=== PATIENT | female | born 1995 | race Caucasian/White ===

== ENCOUNTER 2017-04-21 22:57 | Outpatient (CLI) | payer MEDICAID, OTHER ==
[~2017-04-21] VITALS: Ht 170.2 cm; Wt 94.5 kg
[~2017-04-21 22:57] MED LIST: CEPH-443 PO; FERR240T9 PO; HYDR-762 PO; IBUP800T25 PO; ONDA4TAB35 PO; PREN1TAB62 PO; SENN1TAB PO
[2017-04-21 23:30] VITALS: Ht 170.2 cm; Wt 94.5 kg
[2017-04-21 23:31] VITALS: BP 115/56; PULSE 96; RESP 18
[2017-04-22 00:18] LABS: ADD UMIC YES; UR ASCORBIC ACID NEGATIVE (NEGATIVE); UR BILIRUBIN (Dip) NEGATIVE (NEGATIVE); UR BLOOD (Dip) NEGATIVE (NEGATIVE); UR CLARITY CLEAR (CLEAR); UR COLOR YELLOW (YELLOW); UR GLUCOSE (Dip) NEGATIVE (NEGATIVE); UR KETONES (Dip) NEGATIVE (NEGATIVE); UR LEUKOCYTE ESTERASE (Dip) TRACE Leu/ul (NEGATIVE); UR MUCUS FEW /HPF (NONE SEEN); UR NITRITE (Dip) NEGATIVE (NEGATIVE); UR RBC 1 /HPF (0-5); UR SQUAMOUS EPITHELIAL CELL FEW /HPF (FEW); UR TOTAL PROTEIN (Dip) NEGATIVE (NEGATIVE); UR UROBILINOGEN (Dip) NEGATIVE (NEGATIVE)
--- NOTE | 2017-04-22 01:13 | RADRPT ---
PROCEDURE: OB ultrasound for biophysical profile CLINICAL INDICATION: 21 years of age, female. labor TECHNIQUE: Multiple sonographic images of the pelvis were obtained. Transabdominal view of the gr avid uterus are available for review. The images were reviewed on a PACS workstation. COMPARISON: None available. FINDINGS: breathing movement = 2/2 tone = 2/2 motion = 2/2 Amniotic fluid = 2/2 DANIELLE = 10.8 cm Single live intrauterine in cephalic presentation. heart rate measures 143 bpm. Posterior placenta, grade 1. Cervix is closed and changes length during the exam and measures between 3.9 and 3 cm. This may ind icate 30% internal funneling. IMPRESSION: 1. Single living fetus in cephalic presentation. 2. Biophysical profile = 8/8. 3. DANIELLE = 10.8 cm. 4. Posterior grade 1 placenta. 5. Cervix is closed and measures between 3.9 and 3 cm in length during the exam. This may indicate 3 0% internal funneling. Findings were discussed with Emerald Bosch RN by Dr. Raya Bowers on April 22, 2017 at 1:10 AM. RPTAT: HCTS Physician Michael Date Time Electronically viewed and signed by Physician Michael on 04/22/2017 01:12 CS/
--- NOTE | 2017-04-22 02:54 | TRIAGE ---
OB Triage Datetime Report Generated by CPN: 04/22/2017 02:54 Datetime: 04/22/2017 01:25 Stage of : OB Triage Labor Evaluation Frequency: 0 Monitor Mode: External Pattern: Normal: <= 5 Contractions in 10 Minutes Resting Tone [place]: Relaxed Heart Rate FHR Baseline Rate: 135 Monitor Mode: External US Variability: Moderate 6-25 bpm Accelerations: 15X15 Decelerations: None Category: Category I Datetime: 04/22/2017 00:45 Stage of : OB Triage Labor Evaluation Frequency: OCCASS Monitor Mode: External Duration (sec)2399: 40-50 Quality: Mild Pattern: Normal: <= 5 Contractions in 10 Minutes Resting Tone [place]: Relaxed Heart Rate FHR Baseline Rate: 140 Monitor Mode: External US Variability: Moderate 6-25 bpm Accelerations: 15X15 Decelerations: None Category: Category I Datetime: 04/22/2017 00:13 Vaginal Exam Dilatation (cms): 0.0 Effacement (%): 0 Station: -2 Exam By: MEGA Vaginal Bleeding: None Cervix, Consistency: Moderate Cervix, Position: Posterior Datetime: 04/22/2017 00:00 Stage of : OB Triage Temperature Route: Oral Labor Evaluation Frequency: 0 Monitor Mode: External Pattern: Normal: <= 5 Contractions in 10 Minutes Resting Tone [place]: Relaxed Heart Rate FHR Baseline Rate: 135 Monitor Mode: External US Variability: Moderate 6-25 bpm Accelerations: 15X15 Decelerations: Variable Category: Category II Pain Assessment Pain Scale: 7 Pain Presence: Constant Pain Type: Dull; Ache Pain Location: Abdomen; Back Pain Goal: 3 Pain Relief Measures: Comfort Measures Datetime: 04/21/2017 23:26 Assessment Type: Triage Time of Arrival: 04/21/2017 22:44 EGA: 30.6 Arrived By: Wheelchair Arrived From: Home Chief Complaint: CXS AND VAG PRESSURE X3DAYS NOTED SPOTTING 2 DAYS AGO, NO MORE VOMITING SINCE YESTERDAY, X2 TODAY Movement: Present Contractions: Irregular Rupture of Membranes: Denies Vaginal Bleeding: None Vaginal Discharge: Denies Recent Sexual Intercouse: Denies Abdominal Trauma: Not Applicable Additional Patient Complaints: LAST MEAL AT [address], LAST VOMITNIG AT V1600 Time Provider Notified: 04/22/2017 23:55 Provider Notified: ARDALAN Initial Plan: EFM, ASSESSMENT, CALL MD FOR ORDERS, UA, FFN, CL, BPP Maternal Assessment Level of Consciousness: Fully Conscious DTR's/Clonus: DTRs 2+; No Clonus Headache: Denies Blurred Vision: No Respiratory Effort: Unlabored; Regular Rhythm; Equal Expansion Breath Sounds, Left: Clear and Equal Breath Sounds, Right: Clear and Equal Nausea/Vomiting: Denies RUQ Epigastric Pain: Denies Lower Extremities Edema: None Upper Extremities Edema: None Facial Edema: None Fall Risk Assessment History of Falling: (0) No Secondary Diagnosis: (0) No Ambulatory Aid: (0) Bedrest/Nurse Assist IV Therapy: (0) No Gait: (0) Normal/Bedrest/Immobile Mental Status: (0) Oriented to Own Ability Fall Score: 0 Fall Risk Score Definition: No Risk: No action required
--- NOTE | 2017-04-22 05:42 | PN ---
Triage Information Date/Time April 21, 2017 Reason for visit: Pelvic pressure and contractions 3 days ago currently resolved. Had some spotting and nausea Weeks of Gestation 30 weeks and 6 days /Para Diabetes: none Hypertention: none Additional information 21-year-old with IUP at 30 weeks and 6 days with complaint of contractions since 3 days ago. Reports has some vomiting x 2 days. She had some spotting 2 days ago. Patient had care with Dr. Martínez however due to change of insurance had not been seen for weeks. Objective Vital Signs Date Time Temp Pulse Resp B/P Pulse Ox O2 Delivery O2 Flow Rate FiO2 04/21/17 23:31 97.9 96 18 115/56 97 Heart Rate: 130's Contractions: >10 Minutes Apart Exam General appearance: Alert and oriented 4. Patient does not appear to be in any acute distress. Abdomen: Soft, gravid, fundal height consistent with gestational age. No abdominal tenderness, NST: Category 1 Occasional rare contractions. FFN: negative CL: 3 cm Results/Medications Results 24 hrs Laboratory Tests Test 04/21/17 23:00 04/22/17 00:10 Urine Color YELLOW Urine Clarity CLEAR Urine pH 6.0 Urine Specific [place] 1.030 Urine Ketones NEGATIVE Urine Nitrite NEGATIVE Urine Bilirubin NEGATIVE Urine Urobilinogen NEGATIVE Urine Leukocyte Esterase TRACE A Urine Microscopic RBC 1 Urine Microscopic WBC 3 Urine Squamous Epithelial Cells FEW Urine Mucus FEW A Urine Hemoglobin NEGATIVE Urine Glucose NEGATIVE Urine Total Protein NEGATIVE Fibronectin NEGATIVE Imaging Results PROCEDURE: OB ultrasound for biophysical profile CLINICAL INDICATION: 21 years of age, female. labor TECHNIQUE: Multiple sonographic images of the pelvis were obtained. Transabdominal view of the gravid uterus are available for review. The images were reviewed on a PACS workstation. COMPARISON: None available. FINDINGS: breathing movement = 2/2 tone = 2/2 motion = 2/2 Amniotic fluid = 2/2 DANIELLE = 10.8 cm Single live intrauterine in cephalic presentation. heart rate measures 143 bpm. Posterior placenta, grade 1. Cervix is closed and changes length during the exam and measures between 3.9 and 3 cm. This may indicate 30% internal funneling. IMPRESSION: 1. Single living fetus in cephalic presentation. 2. Biophysical profile = 8. 3. DANIELLE = 10.8 cm. 4. Posterior grade 1 placenta. 5. Cervix is closed and measures between 3.9 and 3 cm in length during the exam. This may indicate 30% internal funneling. Findings were discussed with Emerald Bosch RN by Dr. Raya Bowers on April 22, 2017 at 1:10 AM. RPTAT: HCTS Disposition: Discharge Assessment/Plan IUP at 30 weeks and 6 days Contractions for 4 days. No clear evidence of labor Rare contractions seen on the monitor FFN negative CL 3 cm at least Patient will be discharged home follow up again tomorrow in the triage for repeat CL since the patient dose not have any OB at this time Jennifer RN was advised to call the patient to come back after 24 hours again for follow up and repeat CL and exam Advised to RT triage sooner for any other concerns Patient was advised to find a new OB through her insurance ABHINAV ARELLANO MD Apr 22, 2017 05:42
== END 2017-04-22 00:40 | disposition home or self-care (01) ==
LOC: OBT 22:57 → L-D 22:59 → OBT 04-22 00:40
PROVIDERS: ATTEND Obstetrics & Gynecology Obstetrics
DX: O26.893 Other specified pregnancy related conditions, third trimester (principal); Z3A.30 30 weeks gestation of pregnancy; R10.2 Pelvic and perineal pain
CPT/HCPCS: 76817; 76818; 81001; 82731; Z7500; G0463

== ENCOUNTER 2017-05-09 20:10 | Outpatient (CLI) | payer OTHER ==
[~2017-05-09] VITALS: Ht 170.2 cm; Wt 94.8 kg
[~2017-05-09 20:10] MED LIST changes: -CEPH-443 PO; -HYDR-762 PO; -IBUP800T25 PO; -ONDA4TAB35 PO; -SENN1TAB PO
[2017-05-09 20:17] VITALS: Ht 170.2 cm; Wt 94.8 kg
[2017-05-09 20:40] VITALS: BP 113/69; PULSE 93; RESP 18
--- NOTE | 2017-05-09 21:18 | PN ---
Triage Information Date/Time Reason for visit: Abdominal and pelvic pressure Weeks of Gestation 33 weeks and 3 days of gestation Prior OB history significant for 2 at full-term /Para 3 para 2 Patient with minimal care Patient is complaining of abdominal and pelvic pressure She reports positive movement, no leaking fluid and no vaginal bleeding Diabetes: none Hypertention: none Objective Vital Signs Date Time Temp Pulse Resp B/P Pulse Ox O2 Delivery O2 Flow Rate FiO2 05/09/17 20:40 97.8 93 18 113/69 Room Air Heart Rate: 140's Heart Rate Comments NST is reactive Contractions: None Exam Cervix is closed thick and high per nurse Results/Medications Imaging Results PROCEDURE: US OB Limited for Estimated Weight. CLINICAL INDICATION: 21 years of age, female. Estimated weight. labor TECHNIQUE: Multiple sonographic images of the pelvis were obtained. Transabdominal imaging only was performed. The images were reviewed on a PACS workstation. Image quality: Satisfactory. COMPARISON: April 22, 2017 FINDINGS: Mcmahan : Number of fetuses: 1 GENERAL EVALUATION: Cardiac activity: Present. FHR 137 bpm Presentation: Breech Placenta: Placenta site: Posterior. No evidence of placental previa. Placental grade 1. Placenta is thick and homogeneously echogenic and measures 5.5 cm. DATING: Clinical RADHA: June 24, 2017 EGA based on RADHA: 33 weeks 3-day BIOMETRY: BPD = 8 cm , 32 weeks 1 day HC = 28.8 cm , 31 weeks 5 days AC = 30 cm , 33 weeks 4 days FL = 6.2 cm , 32 weeks 2 days Composite sonographic age: 32 weeks 3 days plus or minus 3 weeks Estimated due date by ultrasound measurements: July 01, 2017 EFW 2067 grams, 26 percentile. ANATOMY: Not evaluated. IMPRESSION: 1. Single living fetus in breech presentation. 2. Clinical gestation age of 33 weeks 3 days and clinical RADHA June 24, 2017 are concordant with the composite sonographic age within 1 week. 3. Estimated weight is 2067 grams that is at the 26 percentile for gestational age. 4. Posterior placenta grade 1. Placenta is thick measuring 5.6 cm that may be seen with ischemic placental disease, infection or anemias. RPTAT: HCTS Physician Michael Date Time Electronically viewed and signed by Physician Michael on 05/09/2017 22: 24 CS/ CC: ADAMARIS MCCORMACK MD PROCEDURE: OB ultrasound for biophysical profile CLINICAL INDICATION: 21 years of age, female. well being. labor TECHNIQUE: Multiple sonographic images of the pelvis were obtained. Transabdominal view of the gravid uterus are available for review. The images were reviewed on a PACS workstation. COMPARISON: None available. FINDINGS: RADHA June 24, 2017 EGA by RADHA 33 weeks 3-day breathing movement = 2/2 tone = 2/2 motion = 2/2 Amniotic fluid = 2/2 DANIELLE = 10.8 cm Single live intrauterine in breech presentation. heart rate measures 144 bpm. Posterior placenta grade 1 Cervix: Closed cervix measures 3.3 cm. Internal funneling measures 1.4 cm (30%) IMPRESSION: 1. Single living fetus in breech presentation. 2. Biophysical profile = 8/8. 3. Low normal. DANIELLE = 10.8 cm. 4. Posterior placenta grade 1. 5. Closed cervix measures 3.3 cm with 30% internal funneling. RPTAT: HCTS Physician Michael Date Time Electronically viewed and signed by Physician Michael on 05/09/2017 22: 28 CS/ CC: ADAMARIS MCCORMACK MD Disposition: Discharge Assessment/Plan kick counts were discussed with the patient Patient was given information about [facility] clinics that she can receive care She was instructed to follow-up with an LOSS PREVENTION OPERATIONS MANAGER in the clinic in 2-3 days ADAMARIS MCCORMACK MD May 09, 2017 21:18
[2017-05-09 21:26] LABS: BARBITURATES Negative (NEGATIVE); BENZODIAZEPINES Negative (NEGATIVE); CANNABINOIDS Negative (NEGATIVE); COCAINE Negative (NEGATIVE); OPIATES Negative (NEGATIVE)
--- NOTE | 2017-05-09 22:25 | RADRPT ---
PROCEDURE: US OB Limited for Estimated Weight. CLINICAL INDICATION: 21 years of age, female. Estimated weight. labor TECHNIQUE: Multiple sonographic images of the pelvis were obtained. Transabdominal imaging only w as performed. The images were reviewed on a PACS workstation. Image quality: Satisfactory. COMPARISON: April 22, 2017 FINDINGS: [place]ma[place] : Number of fetuses: 1 GENERAL EVALUATION: Cardiac activity: Present. FHR 137 bpm Presentation: Breech Placenta: Placenta site: Posterior. No evidence of placental previa. Placental grade 1. Placenta is thick and homogeneously echogenic and measures 5.5 cm. DATING: Clinical RADHA: June 24, 2017 EGA based on RADHA: 33 weeks 3-day BIOMETRY: BPD = 8 cm , 32 weeks 1 day HC = 28.8 cm , 31 weeks 5 days AC = 30 cm , 33 weeks 4 days FL = 6.2 cm , 32 weeks 2 days Composite sonographic age: 32 weeks 3 days plus or minus 3 weeks Estimated due date by ultrasound measurements: July 01, 2017 EFW 2067 grams, 26 percentile. ANATOMY: Not evaluated. IMPRESSION: 1. Single living fetus in breech presentation. 2. Clinical gestation age of 33 weeks 3 days and clinical RADHA June 24, 2017 are concordant with t he composite sonographic age within 1 week. 3. Estimated weight is 2067 grams that is at the 26 percentile for gestational age. 4. Posterior placenta grade 1. Placenta is thick measuring 5.6 cm that may be seen with ischemic grazyna cental disease, infection or anemias. RPTAT: HCTS Physician Michael Date Time Electronically viewed and signed by Physician Michael on 05/09/2017 22:24 CS/
--- NOTE | 2017-05-09 22:29 | RADRPT ---
PROCEDURE: OB ultrasound for biophysical profile CLINICAL INDICATION: 21 years of age, female. well being. labor TECHNIQUE: Multiple sonographic images of the pelvis were obtained. Transabdominal view of the gr avid uterus are available for review. The images were reviewed on a PACS workstation. COMPARISON: None available. FINDINGS: RADHA June 24, 2017 EGA by RADHA 33 weeks 3-day breathing movement = 2/2 tone = 2/2 motion = 2/2 Amniotic fluid = 2/2 DANIELLE = 10.8 cm Single live intrauterine in breech presentation. heart rate measures 144 bpm. Posterior placenta grade 1 Cervix: Closed cervix measures 3.3 cm. Internal funneling measures 1.4 cm (30%) IMPRESSION: 1. Single living fetus in breech presentation. 2. Biophysical profile = 8/8. 3. Low normal. DANIELLE = 10.8 cm. 4. Posterior placenta grade 1. 5. Closed cervix measures 3.3 cm with 30% internal funneling. RPTAT: HCTS Physician Michael Date Time Electronically viewed and signed by Physician Michael on 05/09/2017 22:28 CS/
[2017-05-09 22:46] LABS: ADD UMIC NO; UR ASCORBIC ACID NEGATIVE (NEGATIVE); UR BILIRUBIN (Dip) NEGATIVE (NEGATIVE); UR BLOOD (Dip) NEGATIVE (NEGATIVE); UR CLARITY CLEAR (CLEAR); UR COLOR YELLOW (YELLOW); UR GLUCOSE (Dip) NEGATIVE (NEGATIVE); UR KETONES (Dip) 1+ mg/dL (NEGATIVE); UR LEUKOCYTE ESTERASE (Dip) NEGATIVE Leu/ul (NEGATIVE); UR NITRITE (Dip) NEGATIVE (NEGATIVE); UR SPECIFIC GRAVITY (Dip) 1.025 (1.003-1.030); UR TOTAL PROTEIN (Dip) NEGATIVE (NEGATIVE); UR UROBILINOGEN (Dip) 2+ mg/dL (NEGATIVE)
== END 2017-05-09 23:33 | disposition home or self-care (01) ==
LOC: OBT 20:10 → L-D 20:11 → OBT 23:33
PROVIDERS: ATTEND Obstetrics & Gynecology Gynecology
DX: O26.893 Other specified pregnancy related conditions, third trimester (principal); Z3A.33 33 weeks gestation of pregnancy; R10.9 Unspecified abdominal pain
CPT/HCPCS: 76815; 76817; 76818; 80307; 81003; Z7500; G0463

== ENCOUNTER 2017-05-23 13:05 | Inpatient (IN) | payer OTHER ==
[~2017-05-23] VITALS: Ht 167.6 cm; Wt 95.0 kg
[~2017-05-23 13:05] MED LIST changes: -FERR240T9 PO
[2017-05-23 13:41] VITALS: Ht 167.6 cm; Wt 95.0 kg
[2017-05-23] MEDS ORDERED: LACTATED RINGER'S 1,000 ML IV SCH (14:30)
--- NOTE | 2017-05-23 14:56 | RADRPT ---
PROCEDURE: OB ultrasound for biophysical profile CLINICAL INDICATION: Vaginal bleeding TECHNIQUE: Multiple sonographic images of the pelvis were obtained. Transabdominal views of the g ravid uterus are available for review. The images were reviewed on a PACS workstation. COMPARISON: None FINDINGS: breathing movement = 2/2 tone = 2/2 motion = 2/2 DANIELLE = 2/2 DANIELLE = 9.4 cm Single live intrauterine with cardiac activity of 146 bpm. position is breech . The placenta is posterior. The cervix is closed with a length of 3.3 cm. IMPRESSION: 1. Single live intrauterine gestation. 2. Biophysical profile = 8/8. 3. DANIELLE = 9.4 cm. 4. Breech presentation. RPTAT: HH .Leslie Best MD, Date Time Electronically viewed and signed by .Leslie Best MD, on 05/23/2017 14:55 .G/
--- NOTE | 2017-05-23 14:58 | RADRPT ---
PROCEDURE: US OB. CLINICAL INDICATION: Size and dates TECHNIQUE: Multiple sonographic images of the pelvis were obtained. Transabdominal imaging only w as performed. The images were reviewed on a PACS workstation. COMPARISON: OB ultrasound dated 05/09/2017 FINDINGS: There is a single live intrauterine gestation. Cardiac activity is present with 153 beats per minut e. position is breech. Measurements were made in order to determine age. The results are as follows: BPD = 8.41 cm HC = 30.02 cm AC = 30.76 cm FL = 6.20 cm. Estimated gestational age of approximately 33 weeks 4 days. The estimated date of delivery is 07/07/2017. The EFW = 2272 g, 11 %ile. The placenta is posterior. There is no evidence for an abruption or placenta previa. There are no adnexal masses. IMPRESSION: 1. Single live intrauterine gestation of approximately 33 weeks 4 days, by ultrasound criteria. 2. The estimated date of delivery is 07/07/2017. 3. The estimated weight is 2272 g, 11 %ile. RPTAT: HH .Leslie Best MD, Date Time Electronically viewed and signed by .Leslie Best MD, on 05/23/2017 14:57 .G/
[2017-05-23 15:21] LABS: BASOPHILS % 0.2 % (0.0-2.0); EOSINOPHILS # 0.1 10^3/ul (0.0-0.5); EOSINOPHILS % 1.3 % (0.0-7.0); HEMATOCRIT 30.2 % (37.0-47.0); HEMOGLOBIN 9.8 g/dl (12.0-16.0); LYMPHOCYTES # 2.2 10^3/ul (0.8-2.9); LYMPHOCYTES % 23.1 % (18.0-55.0); MEAN CORPUSCULAR HEMOGLOBIN 27.5 pg (29.0-33.0); MEAN CORPUSCULAR HGB CONC 32.5 g/dl (32.0-37.0); MEAN CORPUSCULAR VOLUME 84.6 fl (72.0-104.0); MEAN PLATELET VOLUME 8.9 fl (7.4-10.4); MONOCYTE # 0.6 10^3/ul (0.3-0.9); MONOCYTES % 6.5 % (0.0-13.0); NEUTROPHIL # 6.6 10^3/ul (1.6-7.5); NEUTROPHILS % 68.6 % (30.0-74.0); PLATELET COUNT 243 10^3/UL (140-415); RED BLOOD COUNT 3.57 10^6/ul (4.20-5.40); RED CELL DISTRIBUTION WIDTH 13.9 % (11.5-14.5); WHITE BLOOD COUNT 9.6 10^3/ul (4.8-10.8)
--- NOTE | 2017-05-23 16:21 | HP ---
Date/Time of Note Date/Time of Note DATE: 05/23/17 TIME: 16:20 OB - History Hx of Present Free Text/Dictation 35+ wks with VB No care : 3 Para: 2 Care: Good Care Ultrasounds: Normal mid trimester US Obstetrical Complications: None Medical Complications: None Past Family/Social History * Past Medical, Surgical, Family and Obstetric Histories reviewed from chart. OB Admission Exam Vital Signs Vital Signs Vital Signs Date Time Temp Pulse Resp B/P Pulse Ox O2 Delivery O2 Flow Rate FiO2 05/23/17 13:41 98.0 Physical Exam Abdomen: WNL Extremities: Normal Cervical Dilatation: None Effacement: 0% Station: Ballotable Membranes: Intact Heart Rate: 140's Accelerations: Accelerations Present Decelerations: No Decelerations Varibility: Moderate Contractions on Admission: None Last 72 hours Lab Results CBC & BMP 05/23/17 15:10 OB Assessment/Plan Reason for admission: observation Plan: Expectant Management SHAWNA TRAMMELL M.D. May 23, 2017 16:21
[2017-05-23] MEDS: LACTATED RINGER'S 1,000 ML IV SCH (16:31)
[2017-05-23] MEDS ORDERED: MAGNESIUM SULFATE 4 GM/100 ML 100 ML ONE (16:36)
[2017-05-23] MEDS ORDERED: MAGNESIUM SULFATE 20 GM/500 ML 500 ML IV ONE (16:37)
[2017-05-23] MEDS ORDERED: BETAMET NA PHOS/AC(6 MG/ML) 5ML INJ ONE (16:38)
[2017-05-23] MEDS ORDERED: MAGNESIUM SULFATE 4 GM/100 ML 100 ML IV SCH (17:00)
[2017-05-23] MEDS: BETAMET NA PHOS/AC(6 MG/ML) 5ML INJ IM SCH (17:01)
[2017-05-23] MEDS: MAGNESIUM SULFATE 20 GM/500 ML 500 ML IV SCH (17:07)
[2017-05-23] MEDS ORDERED: ACETAMINOPHEN 325 MG TAB PO PRN (17:30)
[2017-05-23] MEDS: PRENATAL VITAMIN PO SCH (17:49)
[2017-05-23] MEDS: FERROUS SULFATE (EC) 325 MG TAB PO SCH (17:49)
[2017-05-24] MEDS: MAGNESIUM SULFATE 20 GM/500 ML 500 ML IV SCH ×3 (02:56→22:31)
[2017-05-24] MEDS: LACTATED RINGER'S 1,000 ML IV SCH ×2 (04:30→16:51)
[2017-05-24] MEDS ORDERED: ONDANSETRON 4 MG INJ IV PRN (05:30)
[2017-05-24] MEDS: PRENATAL VITAMIN PO SCH (09:16)
[2017-05-24] MEDS: FERROUS SULFATE (EC) 325 MG TAB PO SCH (09:16)
--- NOTE | 2017-05-24 14:33 | RADRPT ---
PROCEDURE: US OB. CLINICAL INDICATION: Low DANIELLE TECHNIQUE: Transabdominal views of the pelvis are available for review. COMPARISON: Obstetrical ultrasound from 05/23/2017 FINDINGS: There is a single intrauterine gestation in a breech position. The heart rate is present at 161 bpm. The placenta is posterior. There is no evidence of placenta previa or a placental abruption. The DANIELLE measures 9.2 cm. RPTAT: AA IMPRESSION: Normal DANIELLE. Physician Thang Date Time Electronically viewed and signed by Shaquille Lentz Physician on 05/24/2017 14:32 RA/
[2017-05-24] MEDS: BETAMET NA PHOS/AC(6 MG/ML) 5ML INJ IM SCH (16:47)
--- NOTE | 2017-05-24 18:13 | QN ---
Documentation Comment iup 34 + co spotting vss no spotting since yesterday exam wnl cl wnl a/p ucx. continue BMS dc mgsou4 tonight if stable possible dc im am CHRIS BINGHAM MD May 24, 2017 18:13
[2017-05-25] MEDS: LACTATED RINGER'S 1,000 ML IV SCH (06:04)
[2017-05-25] MEDS: FERROUS SULFATE (EC) 325 MG TAB PO SCH (08:40)
[2017-05-25] MEDS: PRENATAL VITAMIN PO SCH (08:40)
--- NOTE | 2017-05-25 11:00 | QN ---
Documentation Comment Antepartum Note: 34+wKs GA PTL NO cervical change received Steroids and Mg NST reassuring [place] No CTXs Pelvic closed cervix --->discharged with precaution .RT Hospital in 2 days for NST SHAWNA BRNAD M.D. May 25, 2017 11:00
--- NOTE | 2017-05-25 11:01 | DS ---
Date/Time of Note Date/Time of Note DATE: 05/25/17 TIME: 11:00 Discharge Summary Admission/Discharge Info Admit Date/Time May 23, 2017 at 16:16 Discharge Date/Time Discharge Diagnosis labor Patient Condition: Good Hospital Course uneventful Home Meds Reported Medications Vit-Iron Fumarate-FA ( Vitamin Tablet) 1 Each Tablet, 1 TAB PO DAILY, TAB 07/10/15 Primary Care Provider Not On Staff Doctor Pending Labs Laboratory Tests Test 05/24/17 12:27 05/24/17 14:00 05/24/17 18:05 Magnesium Level 4.5mg/dl (1.7-2.5) 4.6mg/dl (1.7-2.5) Membranes Rupture NEGATIVE (NEGATIVE) SHAWNA TRAMMELL M.D. May 25, 2017 11:01
--- NOTE | 2017-05-25 11:52 | RADRPT ---
PROCEDURE: US OB biophysical profile. CLINICAL INDICATION: decreased movements, labor TECHNIQUE: Multiple sonographic images of the pelvis were obtained. The images were reviewed on a PACS workstation. COMPARISON: Yesterday FINDINGS: There is a single viable intrauterine gestation. Cardiac activity is present with 161 beats per min picayune. There is a breech presentation. The placenta is posterior. There is no evidence of placental abruption. There is a normal amount of amniotic fluid with an DANIELLE = 9.1 cm. Biophysical profile: movement 2/2 tone 2/2. breathing 2/2 DANIELLE 2/2 Total 04/06 RPTAT: AA . IMPRESSION: Normal biophysical profile. . .Tyler Roach MD, MD Date Time Electronically viewed and signed by .Tyler Roach MD, on 05/25/2017 11:52 .S/
== END 2017-05-25 13:03 | disposition home or self-care (01) | DRG 778 ==
LOC: OBT 13:05 → L-D 13:06 → OBG 16:16 → OBT 16:16
PROVIDERS: ADMIT Obstetrics & Gynecology; ATTEND Obstetrics & Gynecology
DX: O60.03 Preterm labor without delivery, third trimester (principal); O09.33 Supervision of pregnancy with insufficient antenatal care, third trimester; Z3A.35 35 weeks gestation of pregnancy
CPT/HCPCS: 76815; 76817; 76818; 83735; 84112; 85025; 86850; 86900; 86901; 96360; G0463; J0702; J3475; J7120

== ENCOUNTER 2017-05-27 19:28 | Outpatient (CLI) | payer OTHER ==
[~2017-05-27] VITALS: Ht 170.2 cm; Wt 96.5 kg
[2017-05-27 20:33] VITALS: BP 115/61; PULSE 101; Ht 170.2 cm; Wt 96.5 kg
--- NOTE | 2017-05-27 21:28 | RADRPT ---
PROCEDURE: US biophysical profile. CLINICAL INDICATION: labor at 36 weeks gestational age. TECHNIQUE: Multiple sonographic images of the uterus were obtained. The images were revi ewed on a PACS workstation. COMPARISON: 05/25/2017. FINDINGS: There is a single live intrauterine gestation. heart rate is 146 beats per minute. The position is breech. The placenta is posterior grade 1 with no abruption or previa. The DANIELLE is 15.2 cm. (Normal = 5-20 cm.) Breathing Movement: 2 Gross Body Movement: 2 Tone: 2 Qualitative Amniotic Fluid Volume: 2 TOTAL: 8 IMPRESSION: 1. The biophysical score is 8/8. RPTAT: QQ .Juan Pop MD, MD Date Time Electronically viewed and signed by .Juan Pop MD, on 05/27/2017 21:28 .R/
--- NOTE | 2017-05-28 06:22 | TRIAGE ---
OB Triage Datetime Report Generated by CPN: 05/28/2017 06:21 Datetime: 05/27/2017 23:10 Stage of : OB Triage Labor Evaluation Frequency: OCCASS Monitor Mode: External Duration (sec)2399: 50 Quality: Mild Pattern: Normal: <= 5 Contractions in 10 Minutes Resting Tone Pella: Relaxed Heart Rate FHR Baseline Rate: 145 Monitor Mode: External US Variability: Moderate 6-25 bpm Accelerations: 15X15 Decelerations: None Category: Category I Pain Assessment Pain Scale: 0 Pain Presence: None/Denies Pain Type: N/A Pain Goal: 3 Datetime: 05/27/2017 22:45 Time of Arrival: 05/27/2017 19:21 EGA: 36.0 Arrived By: Wheelchair Arrived From: Home Chief Complaint: PT.STATED SHE WAS HERE ON 05/25/17 FOR LABOR, WAS TOLD TO COME FOR BPP Movement: Present Contractions: Denies/Absent Rupture of Membranes: Denies Vaginal Discharge: Denies Recent Sexual Intercouse: Denies Abdominal Trauma: Not Applicable Time Provider Notified: 05/27/2017 23:10 Provider Notified: BOOGIE Initial Plan: BPP Datetime: 05/27/2017 22:30 Stage of : OB Triage Labor Evaluation Frequency: OCCASS Monitor Mode: External Duration (sec)2399: 50 Quality: Mild Pattern: Normal: <= 5 Contractions in 10 Minutes Resting Tone Pella: Relaxed Heart Rate FHR Baseline Rate: 145 Monitor Mode: External US Variability: Moderate 6-25 bpm Accelerations: 15X15 Decelerations: None Category: Category I Pain Assessment Pain Scale: 0 Pain Presence: None/Denies Pain Type: N/A Pain Goal: 3 Datetime: 05/27/2017 21:30 Labor Evaluation Frequency: 0 Monitor Mode: External Resting Tone Pella: Relaxed Heart Rate FHR Baseline Rate: 145 Monitor Mode: External US Variability: Moderate 6-25 bpm Accelerations: 10X10 Decelerations: None Category: Category I Pain Assessment Pain Scale: 0 Pain Presence: None/Denies Pain Type: N/A Pain Goal: 3 Pain Relief Measures: Comfort Measures Datetime: 05/27/2017 20:30 Stage of : OB Triage Assessment Type: Triage Maternal Assessment Level of Consciousness: Fully Conscious DTR's/Clonus: DTRs 2+; No Clonus Headache: Denies Blurred Vision: No Respiratory Effort: Unlabored; Regular Rhythm; Equal Expansion Breath Sounds, Left: Clear and Equal Breath Sounds, Right: Clear and Equal Nausea/Vomiting: Denies RUQ Epigastric Pain: Denies Facial Edema: None Temperature Route: Axillary Fall Risk Assessment History of Falling: (0) No Secondary Diagnosis: (0) No Ambulatory Aid: (0) Bedrest/Nurse Assist IV Therapy: (0) No Gait: (0) Normal/Bedrest/Immobile Mental Status: (0) Oriented to Own Ability Fall Score: 0 Fall Risk Score Definition: No Risk: No action required Labor Evaluation Frequency: 0 Monitor Mode: External Pattern: Normal: <= 5 Contractions in 10 Minutes Resting Tone Pella: Relaxed Heart Rate FHR Baseline Rate: 145 Monitor Mode: External US Variability: Moderate 6-25 bpm Accelerations: 10X10 Decelerations: None Pain Assessment Pain Scale: 0 Pain Presence: None/Denies Pain Type: N/A Pain Goal: 3 Pain Relief Measures: Comfort Measures Datetime: 05/25/2017 12:47 Time of Arrival: 05/27/2017 19:21 EGA: 36.0 Arrived By: Ambulatory Arrived From: Home Chief Complaint: HOSPITALIZED THIS PAST WEEK, INSTRUCTED TO RETURN FOR NST/BPP TODAY. Movement: Present Contractions: Denies/Absent Rupture of Membranes: Denies Vaginal Bleeding: None Vaginal Discharge: Denies Recent Sexual Intercouse: Denies Abdominal Trauma: Not Applicable Initial Plan: MONITOR, BPP Datetime: 05/25/2017 12:00 Stage of : Antepartum Labor Evaluation Frequency: NONE Monitor Mode: External Resting Tone Pella: Relaxed Heart Rate FHR Baseline Rate: 150 Monitor Mode: External US FHR Baseline Changes: No Baseline Change Variability: Moderate 6-25 bpm Accelerations: 15X15 Decelerations: None Category: Category I Pain Assessment Pain Scale: 0 Pain Presence: None/Denies Pain Goal: 3 Datetime: 05/25/2017 11:00 Labor Evaluation Frequency: NONE Monitor Mode: External Resting Tone Pella: Relaxed Heart Rate FHR Baseline Rate: 150 Monitor Mode: External US FHR Baseline Changes: No Baseline Change Variability: Moderate 6-25 bpm Accelerations: 15X15 Decelerations: None Category: Category I Pain Assessment Pain Scale: 0 Pain Presence: None/Denies Pain Goal: 3 Datetime: 05/25/2017 10:00 Stage of : Antepartum Labor Evaluation Frequency: NONE Monitor Mode: External Resting Tone Pella: Relaxed Heart Rate FHR Baseline Rate: 140 Monitor Mode: External US FHR Baseline Changes: No Baseline Change Variability: Moderate 6-25 bpm Accelerations: 15X15 Decelerations: None Category: Category I Pain Assessment Pain Scale: 0 Pain Presence: None/Denies Pain Goal: 3 Datetime: 05/25/2017 09:00 Stage of : Antepartum Labor Evaluation Frequency: NONE Monitor Mode: External Resting Tone Pella: Relaxed Heart Rate FHR Baseline Rate: 140 Monitor Mode: External US FHR Baseline Changes: No Baseline Change Variability: Moderate 6-25 bpm Accelerations: 15X15 Decelerations: None Category: Category I Pain Assessment Pain Scale: 0 Pain Presence: None/Denies Pain Goal: 3 Datetime: 05/25/2017 08:00 Stage of : Antepartum Assessment Type: Ongoing Assessment Maternal Assessment Level of Consciousness: Fully Conscious DTR's/Clonus: DTRs 2+; No Clonus Headache: Denies Blurred Vision: No Respiratory Effort: Unlabored; Regular Rhythm; Equal Expansion Breath Sounds, Left: Clear and Equal Breath Sounds, Right: Clear and Equal Nausea/Vomiting: Denies RUQ Epigastric Pain: Denies Lower Extremities Edema: None Degree: None Upper Extremities Edema: None Degree: None Facial Edema: None Fall Risk Assessment History of Falling: (0) No Secondary Diagnosis: (0) No Ambulatory Aid: (0) Bedrest/Nurse Assist IV Therapy: (0) No Gait: (0) Normal/Bedrest/Immobile Mental Status: (0) Oriented to Own Ability Fall Score: 0 Fall Risk Score Definition: No Risk: No action required Labor Evaluation Frequency: NONE Monitor Mode: External Resting Tone Pella: Relaxed Heart Rate FHR Baseline Rate: 140 Monitor Mode: External US FHR Baseline Changes: No Baseline Change Variability: Moderate 6-25 bpm Accelerations: 15X15 Decelerations: None Category: Category I Pain Assessment Pain Scale: 0 Pain Presence: None/Denies Pain Goal: 3 Datetime: 05/25/2017 07:15 Stage of : Antepartum Stage of : Antepartum Datetime: 05/25/2017 06:56 Stage of : Antepartum Maternal Assessment Level of Consciousness: Fully Conscious Labor Evaluation Frequency: 0 Monitor Mode: External Resting Tone Pella: Relaxed Heart Rate FHR Baseline Rate: 130 Monitor Mode: External US FHR Baseline Changes: No Baseline Change Variability: Moderate 6-25 bpm Decelerations: None Pain Assessment Pain Scale: 0 Pain Presence: None/Denies Pain Type: N/A Pain Goal: 3 Pain Relief Measures: Comfort Measures Membrane Status: Intact Datetime: 05/25/2017 05:58 Stage of : Antepartum Maternal Assessment Level of Consciousness: Fully Conscious Labor Evaluation Frequency: 0 Monitor Mode: External Resting Tone Pella: Relaxed Heart Rate FHR Baseline Rate: 130 Monitor Mode: External US FHR Baseline Changes: No Baseline Change Variability: Moderate 6-25 bpm Decelerations: None Pain Assessment Pain Scale: 0 Pain Presence: None/Denies Pain Type: N/A Pain Goal: 3 Pain Relief Measures: Comfort Measures Membrane Status: Intact Datetime: 05/25/2017 04:58 Stage of : Antepartum Maternal Assessment Level of Consciousness: Fully Conscious Labor Evaluation Frequency: 0 Monitor Mode: External Resting Tone Pella: Relaxed Heart Rate FHR Baseline Rate: 130 Monitor Mode: External US FHR Baseline Changes: No Baseline Change Variability: Moderate 6-25 bpm Decelerations: None Pain Assessment Pain Scale: 0 Pain Presence: None/Denies Pain Type: N/A Pain Goal: 3 Pain Relief Measures: Comfort Measures Membrane Status: Intact Datetime: 05/25/2017 04:39 Stage of : Antepartum Temperature Route: Oral Datetime: 05/25/2017 03:58 Stage of : Antepartum Maternal Assessment Level of Consciousness: Fully Conscious Labor Evaluation Frequency: 0 Monitor Mode: External Resting Tone Pella: Relaxed Heart Rate FHR Baseline Rate: 130 Monitor Mode: External US FHR Baseline Changes: No Baseline Change Variability: Moderate 6-25 bpm Decelerations: None Pain Assessment Pain Scale: 0 Pain Presence: None/Denies Pain Type: N/A Pain Goal: 3 Pain Relief Measures: Comfort Measures Membrane Status: Intact Datetime: 05/25/2017 02:58 Stage of : Antepartum Maternal Assessment Level of Consciousness: Fully Conscious Labor Evaluation Frequency: 0 Monitor Mode: External Resting Tone Pella: Relaxed Heart Rate FHR Baseline Rate: 130 Monitor Mode: External US FHR Baseline Changes: No Baseline Change Variability: Moderate 6-25 bpm Decelerations: None Pain Assessment Pain Scale: 0 Pain Presence: None/Denies Pain Type: N/A Pain Goal: 3 Pain Relief Measures: Comfort Measures Membrane Status: Intact Datetime: 05/25/2017 01:58 Stage of : Antepartum Maternal Assessment Level of Consciousness: Fully Conscious Labor Evaluation Frequency: 0 Monitor Mode: External Resting Tone Pella: Relaxed Heart Rate FHR Baseline Rate: 130 Monitor Mode: External US FHR Baseline Changes: No Baseline Change Variability: Moderate 6-25 bpm Decelerations: None Pain Assessment Pain Scale: 0 Pain Presence: None/Denies Pain Type: N/A Pain Goal: 3 Pain Relief Measures: Comfort Measures Membrane Status: Intact Datetime: 05/25/2017 00:58 Stage of : Antepartum Maternal Assessment Level of Consciousness: Fully Conscious DTR's/Clonus: DTRs 2+ Headache: Denies Labor Evaluation Frequency: 0 Monitor Mode: External Resting Tone Pella: Relaxed Heart Rate FHR Baseline Rate: 130 Monitor Mode: External US FHR Baseline Changes: No Baseline Change Variability: Moderate 6-25 bpm Decelerations: None Pain Assessment Pain Scale: 0 Pain Presence: None/Denies Pain Type: N/A Pain Goal: 3 Pain Relief Measures: Comfort Measures Membrane Status: Intact Datetime: 05/24/2017 23:58 Stage of : Antepartum Maternal Assessment Level of Consciousness: Fully Conscious DTR's/Clonus: DTRs 2+ Headache: Denies Labor Evaluation Frequency: 0 Monitor Mode: External Resting Tone Pella: Relaxed Heart Rate FHR Baseline Rate: 135 Monitor Mode: External US FHR Baseline Changes: No Baseline Change Variability: Moderate 6-25 bpm Decelerations: None Pain Assessment Pain Scale: 0 Pain Presence: None/Denies Pain Type: N/A Pain Goal: 3 Pain Relief Measures: Comfort Measures Membrane Status: Intact Datetime: 05/24/2017 23:15 Stage of : Antepartum Datetime: 05/24/2017 22:58 Stage of : Antepartum Maternal Assessment Level of Consciousness: Fully Conscious DTR's/Clonus: DTRs 2+ Headache: Denies Labor Evaluation Frequency: 0 Monitor Mode: External Resting Tone Pella: Relaxed Heart Rate FHR Baseline Rate: 135 Monitor Mode: External US FHR Baseline Changes: No Baseline Change Variability: Moderate 6-25 bpm Decelerations: None Pain Assessment Pain Scale: 0 Pain Presence: None/Denies Pain Type: N/A Pain Goal: 3 Pain Relief Measures: Comfort Measures Membrane Status: Intact Datetime: 05/24/2017 21:58 Stage of : Antepartum Maternal Assessment Level of Consciousness: Fully Conscious DTR's/Clonus: DTRs 2+ Headache: Denies Labor Evaluation Frequency: 0 Monitor Mode: External Resting Tone Pella: Relaxed Heart Rate FHR Baseline Rate: 135 Monitor Mode: External US FHR Baseline Changes: No Baseline Change Variability: Moderate 6-25 bpm Decelerations: None Pain Assessment Pain Scale: 0 Pain Presence: None/Denies Pain Type: N/A Pain Goal: 3 Pain Relief Measures: Comfort Measures Membrane Status: Intact Datetime: 05/24/2017 20:58 Stage of : Antepartum Maternal Assessment Level of Consciousness: Fully Conscious DTR's/Clonus: DTRs 2+ Headache: Denies Labor Evaluation Frequency: 0 Monitor Mode: External Resting Tone Pella: Relaxed Heart Rate FHR Baseline Rate: 135 Monitor Mode: External US FHR Baseline Changes: No Baseline Change Variability: Moderate 6-25 bpm Decelerations: None Pain Assessment Pain Scale: 0 Pain Presence: None/Denies Pain Type: N/A Pain Goal: 3 Pain Relief Measures: Comfort Measures Membrane Status: Intact Datetime: 05/24/2017 19:58 Stage of : Antepartum Maternal Assessment Level of Consciousness: Fully Conscious DTR's/Clonus: DTRs 2+ Headache: Denies Breath Sounds, Left: Clear and Equal Breath Sounds, Right: Clear and Equal Temperature Route: Oral Labor Evaluation Frequency: 0 Monitor Mode: External Resting Tone Pella: Relaxed Heart Rate FHR Baseline Rate: 135 Monitor Mode: External US FHR Baseline Changes: No Baseline Change Variability: Moderate 6-25 bpm Decelerations: None Category: Category I Pain Assessment Pain Scale: 0 Pain Presence: None/Denies Pain Type: N/A Pain Goal: 3 Pain Relief Measures: Comfort Measures Membrane Status: Intact Datetime: 05/24/2017 19:40 Assessment Type: Ongoing Assessment Maternal Assessment Level of Consciousness: Fully Conscious DTR's/Clonus: DTRs 2+; No Clonus Headache: Denies Blurred Vision: No Respiratory Effort: Unlabored; Regular Rhythm; Equal Expansion Breath Sounds, Left: Clear and Equal Breath Sounds, Right: Clear and Equal Nausea/Vomiting: Denies RUQ Epigastric Pain: Denies Lower Extremities Edema: None Degree: None Upper Extremities Edema: None Degree: None Facial Edema: None Fall Risk Assessment History of Falling: (0) No Secondary Diagnosis: (0) No Ambulatory Aid: (0) Bedrest/Nurse Assist IV Therapy: (0) No Gait: (0) Normal/Bedrest/Immobile Mental Status: (0) Oriented to Own Ability Fall Score: 0 Fall Risk Score Definition: No Risk: No action required Datetime: 05/24/2017 18:15 DTR's/Clonus: DTRs 2+ Headache: Denies Breath Sounds, Left: Clear and Equal Breath Sounds, Right: Clear and Equal Labor Evaluation Frequency: 0 Monitor Mode: External Resting Tone Pella: Relaxed Heart Rate FHR Baseline Rate: 135 Monitor Mode: External US Variability: Moderate 6-25 bpm Decelerations: None Category: Category I Pain Assessment Pain Scale: 0 Pain Presence: None/Denies Pain Type: N/A Pain Goal: 3 Pain Relief Measures: Comfort Measures Datetime: 05/24/2017 16:52 Maternal Assessment Level of Consciousness: Fully Conscious DTR's/Clonus: DTRs 2+ Breath Sounds, Left: Clear and Equal Breath Sounds, Right: Clear and Equal Nausea/Vomiting: Denies Labor Evaluation Frequency: 0 Monitor Mode: External Resting Tone Pella: Relaxed Monitor Mode: External US Pain Assessment Pain Scale: 0 Pain Presence: None/Denies Pain Type: N/A Pain Goal: 3 Pain Relief Measures: Comfort Measures Datetime: 05/24/2017 16:02 Stage of : OB Triage Datetime: 05/24/2017 16:01 DTR's/Clonus: DTRs 2+ Headache: Denies Blurred Vision: No RUQ Epigastric Pain: Denies Facial Edema: None Labor Evaluation Frequency: 0 Monitor Mode: External Resting Tone Pella: Relaxed Heart Rate FHR Baseline Rate: 135 Monitor Mode: External US Variability: Moderate 6-25 bpm Accelerations: 10X10 Decelerations: None Category: Category I Pain Assessment Pain Scale: 0 Pain Presence: None/Denies Pain Type: N/A Pain Goal: 3 Pain Relief Measures: Comfort Measures Datetime: 05/24/2017 15:04 DTR's/Clonus: DTRs 2+ Breath Sounds, Left: Clear and Equal Breath Sounds, Right: Clear and Equal Labor Evaluation Frequency: 0 Monitor Mode: External Resting Tone Pella: Relaxed Heart Rate FHR Baseline Rate: 145 Monitor Mode: External US Variability: Moderate 6-25 bpm Accelerations: 10X10 Decelerations: None Category: Category I Pain Assessment Pain Scale: 0 Pain Presence: None/Denies Pain Type: N/A Pain Goal: 3 Pain Relief Measures: Comfort Measures Datetime: 05/24/2017 14:02 Maternal Assessment Level of Consciousness: Fully Conscious DTR's/Clonus: DTRs 2+ Blurred Vision: No Nausea/Vomiting: Denies Labor Evaluation Frequency: 0 Monitor Mode: External Pattern: Normal: <= 5 Contractions in 10 Minutes Resting Tone Pella: Relaxed Heart Rate FHR Baseline Rate: 135 Monitor Mode: External US Variability: Moderate 6-25 bpm Accelerations: 10X10 Decelerations: None Category: Category I Pain Assessment Pain Scale: 0 Pain Presence: None/Denies Pain Type: N/A Pain Goal: 3 Pain Relief Measures: Comfort Measures Datetime: 05/24/2017 13:53 Stage of : OB Triage Datetime: 05/24/2017 13:04 Maternal Assessment Level of Consciousness: Fully Conscious DTR's/Clonus: DTRs 2+ Headache: Denies Blurred Vision: No Respiratory Effort: Unlabored Breath Sounds, Left: Clear and Equal Breath Sounds, Right: Clear and Equal Nausea/Vomiting: Denies RUQ Epigastric Pain: Denies Facial Edema: None Labor Evaluation Frequency: 0 Monitor Mode: External Pattern: Normal: <= 5 Contractions in 10 Minutes Resting Tone Pella: Relaxed Heart Rate FHR Baseline Rate: 135 Monitor Mode: External US Variability: Moderate 6-25 bpm Accelerations: 10X10 Decelerations: None Category: Category I Pain Assessment Pain Scale: 0 Pain Presence: None/Denies Pain Type: N/A Pain Goal: 3 Pain Relief Measures: Comfort Measures Datetime: 05/24/2017 11:51 DTR's/Clonus: DTRs 2+ Respiratory Effort: Unlabored Breath Sounds, Left: Clear and Equal Breath Sounds, Right: Clear and Equal Nausea/Vomiting: Denies Labor Evaluation Frequency: 0 Monitor Mode: External Pattern: Normal: <= 5 Contractions in 10 Minutes Resting Tone Pella: Relaxed Heart Rate FHR Baseline Rate: 135 Monitor Mode: External US Variability: Moderate 6-25 bpm Decelerations: None Category: Category I Pain Assessment Pain Scale: 0 Pain Presence: None/Denies Pain Type: N/A Pain Goal: 3 Pain Relief Measures: Comfort Measures Datetime: 05/24/2017 10:53 Maternal Assessment Level of Consciousness: Fully Conscious DTR's/Clonus: DTRs 2+ Respiratory Effort: Unlabored Breath Sounds, Left: Clear and Equal Breath Sounds, Right: Clear and Equal Nausea/Vomiting: Denies Labor Evaluation Frequency: 0 Monitor Mode: External Pattern: Normal: <= 5 Contractions in 10 Minutes Resting Tone Pella: Relaxed Heart Rate FHR Baseline Rate: 135 Monitor Mode: External US Variability: Moderate 6-25 bpm Accelerations: 10X10 Decelerations: None Category: Category I Pain Assessment Pain Scale: 0 Pain Presence: None/Denies Pain Type: N/A Pain Goal: 3 Pain Relief Measures: Comfort Measures Datetime: 05/24/2017 09:57 Maternal Assessment Level of Consciousness: Fully Conscious DTR's/Clonus: DTRs 2+ Blurred Vision: No Respiratory Effort: Unlabored Breath Sounds, Left: Clear and Equal Breath Sounds, Right: Clear and Equal Nausea/Vomiting: Denies RUQ Epigastric Pain: Denies Facial Edema: None Labor Evaluation Frequency: 0 Monitor Mode: External Resting Tone Pella: Relaxed Heart Rate FHR Baseline Rate: 135 Monitor Mode: External US Variability: Moderate 6-25 bpm Accelerations: 10X10 Decelerations: None Category: Category I Pain Assessment Pain Scale: 0 Pain Presence: None/Denies Pain Type: N/A Pain Goal: 3 Datetime: 05/24/2017 09:19 Respiratory Effort: Unlabored Datetime: 05/24/2017 09:18 Maternal Assessment Level of Consciousness: Fully Conscious DTR's/Clonus: DTRs 2+ Headache: Denies Blurred Vision: No Breath Sounds, Left: Clear and Equal Breath Sounds, Right: Clear and Equal Nausea/Vomiting: Denies RUQ Epigastric Pain: Denies Labor Evaluation Frequency: 0 Monitor Mode: External Resting Tone Pella: Relaxed Pain Assessment Pain Scale: 0 Pain Presence: None/Denies Pain Type: N/A Pain Goal: 3 Datetime: 05/24/2017 08:05 Respiratory Effort: Unlabored Labor Evaluation Frequency: 0 Monitor Mode: External Resting Tone Pella: Relaxed Heart Rate FHR Baseline Rate: 135 Variability: Moderate 6-25 bpm Accelerations: None Decelerations: None Category: Category I Pain Assessment Pain Scale: 0 Pain Presence: None/Denies Pain Type: N/A Pain Goal: 3 Datetime: 05/24/2017 07:28 Maternal Assessment Level of Consciousness: Fully Conscious DTR's/Clonus: DTRs 2+ Headache: Denies Blurred Vision: No Respiratory Effort: Unlabored Breath Sounds, Right: Clear and Equal Nausea/Vomiting: Denies RUQ Epigastric Pain: Denies Facial Edema: None Labor Evaluation Frequency: 0 Monitor Mode: External Resting Tone Pella: Relaxed Contraction Comments: DENIES Heart Rate FHR Baseline Rate: 125 Monitor Mode: External US Variability: Moderate 6-25 bpm Accelerations: 10X10 Decelerations: None Category: Category I Pain Assessment Pain Scale: 0 Pain Presence: None/Denies Pain Type: N/A Pain Goal: 3 Pain Relief Measures: Comfort Measures Datetime: 05/24/2017 07:24 Assessment Type: Ongoing Assessment Maternal Assessment Level of Consciousness: Fully Conscious DTR's/Clonus: DTRs 2+; No Clonus Headache: Denies Blurred Vision: No Respiratory Effort: Unlabored; Regular Rhythm; Equal Expansion Breath Sounds, Left: Clear and Equal Breath Sounds, Right: Clear and Equal Nausea/Vomiting: Denies RUQ Epigastric Pain: Denies Lower Extremities Edema: None Degree: None Upper Extremities Edema: None Degree: None Facial Edema: None Fall Risk Assessment History of Falling: (0) No Secondary Diagnosis: (0) No Ambulatory Aid: (0) Bedrest/Nurse Assist IV Therapy: (0) No Gait: (0) Normal/Bedrest/Immobile Mental Status: (0) Oriented to Own Ability Fall Score: 0 Fall Risk Score Definition: No Risk: No action required Datetime: 05/24/2017 07:15 Stage of : Antepartum Datetime: 05/24/2017 06:59 Labor Evaluation Frequency: X1 Monitor Mode: External Duration (sec)2399: 60 Quality: Mild Resting Tone Pella: Relaxed Heart Rate FHR Baseline Rate: 125 Monitor Mode: External US Variability: Moderate 6-25 bpm Accelerations: 15X15 Decelerations: None Category: Category I Pain Presence: None/Denies Pain Type: N/A Amniotic Fluid Amount: None Vaginal Bleeding: None Datetime: 05/24/2017 06:00 DTR's/Clonus: DTRs 2+; No Clonus Labor Evaluation Frequency: NONE Monitor Mode: External Resting Tone Pella: Relaxed Heart Rate FHR Baseline Rate: 120 Monitor Mode: External US Variability: Moderate 6-25 bpm Accelerations: 15X15 Decelerations: None Category: Category I Pain Presence: None/Denies Pain Type: N/A Datetime: 05/24/2017 05:00 Stage of : Antepartum Labor Evaluation Frequency: NONE Monitor Mode: External Resting Tone Pella: Relaxed Heart Rate FHR Baseline Rate: 125 Monitor Mode: External US Variability: Moderate 6-25 bpm Accelerations: None Decelerations: None Category: Category I Pain Presence: None/Denies Pain Type: N/A Datetime: 05/24/2017 04:30 Stage of : Antepartum Datetime: 05/24/2017 04:00 Maternal Assessment Level of Consciousness: Fully Conscious DTR's/Clonus: DTRs 2+; No Clonus Breath Sounds, Left: Clear and Equal Breath Sounds, Right: Clear and Equal Labor Evaluation Frequency: NONE Monitor Mode: External Resting Tone Pella: Relaxed Heart Rate FHR Baseline Rate: 130 Monitor Mode: External US Variability: Moderate 6-25 bpm Accelerations: None Decelerations: None Category: Category I Pain Presence: None/Denies Pain Type: N/A Pain Assessment Comments: PT DENIES ANY NEEDS AT THIS TIME Datetime: 05/24/2017 03:00 Labor Evaluation Frequency: NONE Monitor Mode: External Resting Tone Pella: Relaxed Heart Rate FHR Baseline Rate: 135 Monitor Mode: External US Variability: Moderate 6-25 bpm Accelerations: 15X15 Decelerations: None Category: Category I Pain Presence: None/Denies Pain Type: N/A Pain Assessment Comments: PT SLEEPING BUT EASILY AROUSED Datetime: 05/24/2017 02:56 Stage of : Antepartum Datetime: 05/24/2017 02:00 Stage of : Antepartum DTR's/Clonus: DTRs 2+; No Clonus Labor Evaluation Frequency: NONE Monitor Mode: External Quality: Mild Resting Tone Pella: Relaxed Heart Rate FHR Baseline Rate: 135 Monitor Mode: External US Variability: Moderate 6-25 bpm Accelerations: 15X15 Decelerations: None Category: Category I Pain Presence: None/Denies Pain Type: N/A Pain Assessment Comments: PT SLEEPING BUT EASILY AROUSED Datetime: 05/24/2017 01:00 Labor Evaluation Frequency: NONE Monitor Mode: External Resting Tone Pella: Relaxed Heart Rate FHR Baseline Rate: 140 Monitor Mode: External US Variability: Moderate 6-25 bpm Accelerations: Prolonged Decelerations: None Category: Category I Pain Presence: None/Denies Pain Type: N/A Datetime: 05/24/2017 00:00 DTR's/Clonus: DTRs 2+; No Clonus Breath Sounds, Left: Clear and Equal Breath Sounds, Right: Clear and Equal Labor Evaluation Frequency: NONE Monitor Mode: External Resting Tone Pella: Relaxed Heart Rate FHR Baseline Rate: 140 Monitor Mode: External US Variability: Moderate 6-25 bpm Accelerations: 15X15 Decelerations: None Category: Category I Pain Presence: None/Denies Pain Type: N/A Datetime: 05/23/2017 23:35 Pain Presence: None/Denies Pain Type: N/A Datetime: 05/23/2017 23:00 Labor Evaluation Frequency: NONE Monitor Mode: External Resting Tone [place]: Relaxed Heart Rate FHR Baseline Rate: 140 Monitor Mode: External US Variability: Moderate 6-25 bpm Accelerations: 15X15 Decelerations: None Category: Category I Pain Assessment Pain Scale: 3 Pain Presence: Constant Pain Type: Burning Pain Location: Left Arm Pain Goal: 1 Pain Relief Measures: Comfort Measures Pain Assessment Comments: ICE PACK REMAINS ON PT'S ARM Datetime: 05/23/2017 22:00 Stage of : Antepartum DTR's/Clonus: DTRs 2+; No Clonus Labor Evaluation Frequency: NONE Monitor Mode: External Resting Tone [place]: Relaxed Heart Rate FHR Baseline Rate: 150 Monitor Mode: External US Variability: Moderate 6-25 bpm Accelerations: Prolonged Decelerations: None Category: Category I Pain Assessment Pain Scale: 3 Pain Presence: Constant Pain Type: Ache Pain Location: Left Arm Pain Goal: 5 Pain Assessment Comments: ICE PACK APPLIED TO IV SITE. MAGNESIUM SULFATE INFUSION MAKING PT'S ARM SORE Datetime: 05/23/2017 21:00 Heart Rate FHR Baseline Rate: 140 Monitor Mode: External US Variability: Moderate 6-25 bpm Accelerations: 15X15 Decelerations: None Category: Category I Pain Presence: None/Denies Pain Type: N/A Datetime: 05/23/2017 20:00 Stage of : Antepartum Labor Evaluation Frequency: NONE Monitor Mode: External Resting Tone [place]: Relaxed Heart Rate FHR Baseline Rate: 145 Monitor Mode: External US Variability: Moderate 6-25 bpm Accelerations: 15X15 Decelerations: None Category: Category I Pain Presence: None/Denies Pain Type: N/A Datetime: 05/23/2017 19:24 Stage of : Antepartum Assessment Type: Ongoing Assessment Maternal Assessment Level of Consciousness: Fully Conscious DTR's/Clonus: DTRs 2+; No Clonus Headache: Denies Blurred Vision: No Respiratory Effort: Unlabored; Regular Rhythm; Equal Expansion Breath Sounds, Left: Clear and Equal Breath Sounds, Right: Clear and Equal Nausea/Vomiting: Denies RUQ Epigastric Pain: Denies Lower Extremities Edema: None Degree: None Upper Extremities Edema: None Degree: None Facial Edema: None Temperature Route: Oral Fall Risk Assessment History of Falling: (0) No Secondary Diagnosis: (0) No Ambulatory Aid: (0) Bedrest/Nurse Assist IV Therapy: (0) No Gait: (0) Normal/Bedrest/Immobile Mental Status: (0) Oriented to Own Ability Fall Score: 0 Fall Risk Score Definition: No Risk: No action required Contraction Comments: PT DENIES UC'S Comments: PT STATES + FM Pain Presence: None/Denies Pain Type: N/A Amniotic Fluid Amount: None Vaginal Bleeding: None (Annotations: AT THIS TIME) Datetime: 05/23/2017 18:48 Maternal Assessment Level of Consciousness: Fully Conscious DTR's/Clonus: DTRs 2+ Headache: Denies Blurred Vision: No Respiratory Effort: Unlabored Breath Sounds, Left: Clear and Equal Breath Sounds, Right: Clear and Equal Nausea/Vomiting: Denies RUQ Epigastric Pain: Denies Facial Edema: None Labor Evaluation Frequency: IRREG Monitor Mode: External Quality: Mild Pattern: Normal: <= 5 Contractions in 10 Minutes Resting Tone [place]: Relaxed Heart Rate FHR Baseline Rate: 140 Monitor Mode: External US FHR Baseline Changes: No Baseline Change Variability: Moderate 6-25 bpm Accelerations: 15X15 Decelerations: None Category: Category I Pain Assessment Pain Scale: 0 Pain Presence: None/Denies Pain Type: N/A Pain Goal: 0 Membrane Status: Intact Datetime: 05/23/2017 17:24 Maternal Assessment Level of Consciousness: Fully Conscious DTR's/Clonus: DTRs 2+; No Clonus Blurred Vision: No Respiratory Effort: Unlabored; Regular Rhythm; Equal Expansion Breath Sounds, Left: Clear and Equal Breath Sounds, Right: Clear and Equal Nausea/Vomiting: Denies RUQ Epigastric Pain: Denies Facial Edema: None Fall Risk Assessment History of Falling: (0) No Secondary Diagnosis: (0) No Ambulatory Aid: (0) Bedrest/Nurse Assist Gait: (0) Normal/Bedrest/Immobile Mental Status: (0) Oriented to Own Ability Datetime: 05/23/2017 16:45 Maternal Assessment Level of Consciousness: Fully Conscious DTR's/Clonus: DTRs 2+ Headache: Occipital Blurred Vision: No Nausea/Vomiting: Denies RUQ Epigastric Pain: Denies Facial Edema: None Labor Evaluation Frequency: IRREG Monitor Mode: External Duration (sec)2399: 50-60 Quality: Mild Pattern: Normal: <= 5 Contractions in 10 Minutes Resting Tone [place]: Relaxed Pain Assessment Pain Scale: 10 Pain Presence: Intermittent Pain Type: Pressure Pain Location: Abdomen Membrane Status: Intact Datetime: 05/23/2017 16:30 Stage of : OB Triage Maternal Assessment Level of Consciousness: Fully Conscious DTR's/Clonus: DTRs 1+ Headache: Denies Breath Sounds, Left: Clear and Equal Breath Sounds, Right: Clear and Equal Nausea/Vomiting: Denies RUQ Epigastric Pain: Denies Labor Evaluation Frequency: NONE Monitor Mode: External Resting Tone [place]: Relaxed Heart Rate FHR Baseline Rate: 135 Monitor Mode: External US Variability: Moderate 6-25 bpm Accelerations: 15X15 Decelerations: None Category: Category I Pain Assessment Pain Scale: 0 Pain Presence: None/Denies Pain Type: N/A Pain Goal: 3 Membrane Status: Intact Datetime: 05/23/2017 16:18 Stage of : OB Triage Datetime: 05/23/2017 15:30 Stage of : OB Triage Maternal Assessment Level of Consciousness: Fully Conscious DTR's/Clonus: DTRs 1+ Headache: Denies Breath Sounds, Left: Clear and Equal Breath Sounds, Right: Clear and Equal Nausea/Vomiting: Denies RUQ Epigastric Pain: Denies Labor Evaluation Frequency: NONE Monitor Mode: External Resting Tone [place]: Relaxed Heart Rate FHR Baseline Rate: 140 Monitor Mode: External US Variability: Moderate 6-25 bpm Accelerations: 15X15 Decelerations: None Category: Category I Pain Assessment Pain Scale: 0 Pain Presence: None/Denies Pain Type: N/A Pain Goal: 3 Membrane Status: Intact Datetime: 05/23/2017 14:30 Maternal Assessment Level of Consciousness: Fully Conscious DTR's/Clonus: DTRs 1+ Headache: Denies Blurred Vision: No Respiratory Effort: Unlabored Breath Sounds, Left: Clear and Equal Breath Sounds, Right: Clear and Equal Nausea/Vomiting: Denies RUQ Epigastric Pain: Denies Facial Edema: None Labor Evaluation Frequency: NONE Monitor Mode: External Resting Tone [place]: Relaxed Heart Rate FHR Baseline Rate: 140 Monitor Mode: External US Variability: Moderate 6-25 bpm Accelerations: 15X15 Decelerations: None Category: Category I Pain Assessment Pain Scale: 0 Pain Presence: None/Denies Pain Type: N/A Pain Goal: 3 Membrane Status: Intact Datetime: 05/23/2017 13:30 Stage of : OB Triage Maternal Assessment Level of Consciousness: Fully Conscious DTR's/Clonus: DTRs 1+ Headache: Denies Breath Sounds, Left: Clear and Equal Breath Sounds, Right: Clear and Equal Nausea/Vomiting: Denies RUQ Epigastric Pain: Denies Labor Evaluation Frequency: NONE Monitor Mode: External Resting Tone [place]: Relaxed Heart Rate FHR Baseline Rate: 140 Monitor Mode: External US Variability: Moderate 6-25 bpm Accelerations: 15X15 Decelerations: None Category: Category I Pain Assessment Pain Scale: 0 Pain Presence: None/Denies Pain Type: N/A Pain Goal: 3 Membrane Status: Intact Datetime: 05/23/2017 13:00 Assessment Type: Triage Maternal Assessment Level of Consciousness: Fully Conscious DTR's/Clonus: DTRs 2+; No Clonus Headache: Denies Blurred Vision: No Respiratory Effort: Unlabored; Regular Rhythm; Equal Expansion Breath Sounds, Left: Clear and Equal Breath Sounds, Right: Clear and Equal Nausea/Vomiting: Denies RUQ Epigastric Pain: Denies Lower Extremities Edema: None Degree: None Upper Extremities Edema: None Degree: None Facial Edema: None Fall Risk Assessment History of Falling: (0) No Secondary Diagnosis: (0) No Ambulatory Aid: (0) Bedrest/Nurse Assist IV Therapy: (0) No Gait: (0) Normal/Bedrest/Immobile Mental Status: (0) Oriented to Own Ability Fall Score: 0 Fall Risk Score Definition: No Risk: No action required Datetime: 05/23/2017 12:56 Time of Arrival: 05/23/2017 12:56 EGA: 35.3 Arrived By: Ambulatory Arrived From: Home Chief Complaint: PT CAME IN C/O BLEEDING SINCE YESTERDAY AND SHE WASNT ABLE TO COME TO GET CHECK. PT STATES THAT SHE DOESNT HAVE AN OBGYN FOR THIS Movement: Present Contractions: Denies/Absent Rupture of Membranes: Denies Vaginal Discharge: Denies Recent Sexual Intercouse: Denies Abdominal Trauma: Not Applicable Additional Patient Complaints: NONE Time Provider Notified: 05/23/2017 13:40 Provider Notified: VALERI Initial Plan: MONITOR AND U/S, CBC, IV HYDRATION, TYPE AND CROSS Datetime: 05/09/2017 23:33 Stage of : OB Triage Datetime: 05/09/2017 23:00 Stage of : OB Triage Labor Evaluation Frequency: IRREGULAR Monitor Mode: External Duration (sec)2399: 40 Resting Tone [place]: Relaxed Heart Rate FHR Baseline Rate: 145 Monitor Mode: External US Variability: Moderate 6-25 bpm Accelerations: 15X15 Decelerations: None Category: Category I Datetime: 05/09/2017 22:57 Stage of : OB Triage Datetime: 05/09/2017 22:00 Stage of : OB Triage Labor Evaluation Frequency: IRREGULAR Monitor Mode: External Duration (sec)2399: 30-40 Resting Tone [place]: Relaxed Heart Rate FHR Baseline Rate: 135 Monitor Mode: External US FHR Baseline Changes: No Baseline Change Variability: Moderate 6-25 bpm Accelerations: 15X15 Decelerations: None Category: Category I Datetime: 05/09/2017 21:13 Monitor Mode: External Monitor Mode: External US Datetime: 05/09/2017 21:00 Stage of : OB Triage Labor Evaluation Frequency: IRREGULAR Monitor Mode: External Duration (sec)2399: 30-40 Resting Tone [place]: Relaxed Contraction Comments: ABDOMEN SOFT ON PALPATION Heart Rate FHR Baseline Rate: 135 Monitor Mode: External US Accelerations: 15X15 Decelerations: None Category: Category I Comments: PT ACKNOWLEDGES MOVEMENT Vaginal Exam Dilatation (cms): 0.0 Effacement (%): 0 Station: 0 Exam By: Lizzie BIRCH Vaginal Bleeding: None Cervix, Consistency: Moderate Cervix, Position: Posterior Datetime: 05/09/2017 20:45 Stage of : OB Triage Datetime: 05/09/2017 20:22 Stage of : OB Triage Assessment Type: Triage Maternal Assessment Level of Consciousness: Fully Conscious DTR's/Clonus: DTRs 2+; No Clonus Headache: Denies Blurred Vision: No Respiratory Effort: Unlabored; Regular Rhythm; Equal Expansion Breath Sounds, Left: Clear and Equal Breath Sounds, Right: Clear and Equal Nausea/Vomiting: Denies RUQ Epigastric Pain: Denies Lower Extremities Edema: None Degree: None Upper Extremities Edema: None Degree: None Facial Edema: None Temperature Route: Oral Fall Risk Assessment History of Falling: (0) No Secondary Diagnosis: (0) No Ambulatory Aid: (0) Bedrest/Nurse Assist IV Therapy: (0) No Gait: (0) Normal/Bedrest/Immobile Mental Status: (0) Oriented to Own Ability Fall Score: 0 Fall Risk Score Definition: No Risk: No action required Pain Assessment Pain Scale: 7 Pain Presence: Intermittent Pain Type: Pressure Pain Location: Abdomen; Perineum Datetime: 05/09/2017 20:05 Time of Arrival: 05/09/2017 20:04 EGA: 33.3 Arrived By: Ambulatory Arrived From: Home Chief Complaint: VAGINAL AND ABDOMINAL PRESSURE X1 WEEK Movement: Present Contractions: Irregular Rupture of Membranes: Denies Vaginal Bleeding: None Vaginal Discharge: Denies Recent Sexual Intercouse: Denies Abdominal Trauma: Not Applicable Patient Complaints: Other Time Provider Notified: 05/09/2017 20:45 Provider Notified: DR. MCCORMACK Initial Plan: EFM, CALL OB, SVE, UDS, BPP, DANIELLE, EFW, CVL Datetime: 04/21/2017 23:26 EGA: 30.6 Fall Score: 0 Fall Risk Score Definition: No Risk: No action required
--- NOTE | 2017-05-28 07:04 | PN ---
Triage Information Date/Time 05/28/17 0700 Reason for visit: for f/u NST BPP Weeks of Gestation 36w /Para Diabetes: none Hypertention: none Objective Vital Signs Date Time Temp Pulse Resp B/P Pulse Ox O2 Delivery O2 Flow Rate FiO2 05/27/17 20:33 97.8 101 115/61 Heart Rate: 150's Contractions: None Results/Medications Imaging Results BPP 04/06 DANIELLE 9.2 Disposition: Discharge Assessment/Plan plan RTH for DANIELLE in 3-4days LUBA HYMAN MD May 28, 2017 07:04
== END 2017-05-27 23:25 | disposition home or self-care (01) ==
LOC: OBT 19:28 → L-D 19:29 → OBT 23:25
PROVIDERS: ATTEND Obstetrics & Gynecology
DX: O60.03 Preterm labor without delivery, third trimester (principal); Z3A.36 36 weeks gestation of pregnancy
CPT/HCPCS: 76818; G0463

== ENCOUNTER 2017-05-30 21:18 | Outpatient (CLI) | payer OTHER ==
--- NOTE | 2017-05-30 22:21 | RADRPT ---
PROCEDURE: US OB biophysical profile with amniotic fluid index. CLINICAL INDICATION: HX PTL TECHNIQUE: Multiple sonographic images of the pelvis were obtained. The images were reviewed on a PACS workstation. COMPARISON: None FINDINGS: Presentation: Breech with the head to the maternal right. Cardiac activity is present with 152 beats per minute. The placenta is posterior, grade 0. MVP: Not available. Amniotic fluid index: 11.39 cm Biophysical profile: movement 2/2 tone 2/2. breathing 2/2 DANIELLE 2/2 Total 04/06 IMPRESSION: 1. Normal biophysical profile. 2. Amniotic fluid index: 11.4 cm RPTAT:AAJJ . Physician Merle Date Time Electronically viewed and signed by Khoi Flynn Physician on 05/30/2017 22:21 LORETO/
--- NOTE | 2017-05-30 22:51 | TRIAGE ---
OB Triage Datetime Report Generated by CPN: 05/30/2017 22:51 Datetime: 05/30/2017 22:00 Labor Evaluation Frequency: 0 Monitor Mode: External Duration (sec)2399: 0 Pattern: Normal: <= 5 Contractions in 10 Minutes Contraction Comments: NO UC'S RECORDED, PT DENIES UC'S Heart Rate FHR Baseline Rate: 145 Monitor Mode: External US FHR Baseline Changes: No Baseline Change Variability: Moderate 6-25 bpm Accelerations: 15X15 Datetime: 05/30/2017 21:47 Stage of : OB Triage Time of Arrival: 05/30/2017 21:13 EGA: 36.3 Arrived By: Ambulatory Arrived From: Home Chief Complaint: F/U BPP NO PNC OR OB CLINIC Movement: Decreased Contractions: Denies/Absent Rupture of Membranes: Denies Vaginal Discharge: Denies Recent Sexual Intercouse: Denies Abdominal Trauma: Not Applicable Patient Complaints: None Time Provider Notified: 05/30/2017 22:00 Provider Notified: UAJE Initial Plan: BPP Maternal Assessment Level of Consciousness: Fully Conscious Headache: Denies Blurred Vision: No Respiratory Effort: Unlabored; Regular Rhythm; Equal Expansion Nausea/Vomiting: Denies RUQ Epigastric Pain: Denies Facial Edema: None Fall Risk Assessment History of Falling: (0) No Secondary Diagnosis: (0) No Ambulatory Aid: (0) Bedrest/Nurse Assist IV Therapy: (0) No Gait: (0) Normal/Bedrest/Immobile Mental Status: (0) Oriented to Own Ability Fall Score: 0 Fall Risk Score Definition: No Risk: No action required Datetime: 05/30/2017 21:26 Pain Assessment Pain Scale: 0 Datetime: 05/30/2017 21:25 Monitor Mode: Palpation Resting Tone [place]: Relaxed Monitor Mode: External US Datetime: 05/27/2017 22:45 EGA: 36.0 Datetime: 05/27/2017 20:30 Fall Score: 0 Fall Risk Score Definition: No Risk: No action required Datetime: 05/25/2017 12:47 EGA: 36.0 Datetime: 05/25/2017 08:00 Fall Score: 0 Fall Risk Score Definition: No Risk: No action required Datetime: 05/24/2017 19:40 Fall Score: 0 Fall Risk Score Definition: No Risk: No action required Datetime: 05/24/2017 07:24 Fall Score: 0 Fall Risk Score Definition: No Risk: No action required Datetime: 05/23/2017 19:24 Fall Score: 0 Fall Risk Score Definition: No Risk: No action required Datetime: 05/23/2017 13:00 Fall Score: 0 Fall Risk Score Definition: No Risk: No action required Datetime: 05/23/2017 12:56 EGA: 35.3 Datetime: 05/09/2017 20:22 Fall Score: 0 Fall Risk Score Definition: No Risk: No action required Datetime: 05/09/2017 20:05 EGA: 33.3 Datetime: 04/21/2017 23:26 EGA: 30.6 Fall Score: 0 Fall Risk Score Definition: No Risk: No action required
--- NOTE | 2017-05-30 22:52 | PN ---
Triage Information Date/Time Reason for visit: DFM Weeks of Gestation 36w 3d /Para Objective Heart Rate: 140's Contractions: None Results/Medications Imaging Results BPP 8/8, DANIELLE 11.4, breech presentation Disposition: Discharge Assessment/Plan 21 y/o at 36w 3d here for follow-up of dfm -BPP normal, NST reactive -discussed importance of establishing care and risks associated with no care. Patient understands. -reviewed US results with breech presentation and need for if persistent SILVIO MORENO May 30, 2017 22:52
== END 2017-05-30 23:15 | disposition home or self-care (01) ==
LOC: L-D 21:18 → OBT 21:18
PROVIDERS: ATTEND Obstetrics & Gynecology
DX: O36.8130 Decreased fetal movements, third trimester, not applicable or unspecified (principal); Z3A.36 36 weeks gestation of pregnancy
CPT/HCPCS: 76818; Z7500; G0463

== ENCOUNTER 2017-06-15 22:09 | Outpatient (CLI) | payer OTHER ==
[~2017-06-15] VITALS: Ht 170.2 cm; Wt 97.8 kg
[2017-06-15 22:22] VITALS: BP 119/64; PULSE 74; RESP 19; Ht 170.2 cm; Wt 97.8 kg
--- NOTE | 2017-06-15 23:23 | PN ---
Triage Information Date/Time Reason for visit: Uterine contractions (since 2029. Resolved on arrival to triage) Weeks of Gestation 38+5 /Para 3/2 Diabetes: none Hypertention: none Additional information Reports normal FM, denies LOF or VB Objective Vital Signs Date Time Temp Pulse Resp B/P Pulse Ox O2 Delivery O2 Flow Rate FiO2 06/15/17 22:22 98.1 74 19 119/64 97 Room Air Heart Rate: 140's (145) Heart Rate Comments moderate variability, +accels, possible mild variable to 130s x1 Contractions: None Exam FT/long/high/posterior Results/Medications Imaging Results PROCEDURE: Limited OB ultrasound CLINICAL INDICATION: position. TECHNIQUE: Sonographic evaluation to assess the position was performed utilizing transabdominal imaging. [place] scale and Doppler imaging was performed. COMPARISON: None. FINDINGS: A single live intrauterine in breech, head maternal right presentation is identified. The heart rate measures 141 bpm. There is an posterior, grade 2. IMPRESSION: 1. Single live intrauterine in breech, head maternal right presentation. Disposition: Discharge Assessment/Plan No e/o labor Reactive NST Breech presentation Pt encouraged to f/up with Dr. Martínez, primary OB, as scheduled on 06/17 and with U/S tomorrow Labor, ROM, FKC precautions reviewed ASHER BLANCO MD Jun 15, 2017 23:21
--- NOTE | 2017-06-15 23:34 | RADRPT ---
PROCEDURE: Limited OB ultrasound CLINICAL INDICATION: position. TECHNIQUE: Sonographic evaluation to assess the position was performed utilizing transabdomi nal imaging. [place] scale and Doppler imaging was performed. COMPARISON: None. FINDINGS: A single live intrauterine in breech, head maternal right presentation is identified. The heart rate measures 141 bpm. There is an posterior, grade 2. IMPRESSION: 1. Single live intrauterine in breech, head maternal right presentation. RPTAT: HTAR .Luis Segura MD, Date Time Electronically viewed and signed by .Luis Segura MD, on 06/15/2017 23:33 .R/
== END 2017-06-15 23:37 | disposition home or self-care (01) ==
LOC: OBT 22:09 → L-D 22:11 → OBT 23:37
PROVIDERS: ATTEND Specialist
DX: O62.9 Abnormality of forces of labor, unspecified (principal); Z3A.38 38 weeks gestation of pregnancy
CPT/HCPCS: 76815

== ENCOUNTER 2017-06-17 23:20 | Inpatient (IN) | payer OTHER ==
[~2017-06-17] VITALS: Ht 170.2 cm; Wt 98.6 kg
[2017-06-17 23:30] VITALS: BP 136/78; PULSE 95; RESP 18
[2017-06-17 23:31] VITALS: Ht 170.2 cm; Wt 98.6 kg
[2017-06-17 23:38] VITALS: BP 136/78
[2017-06-17] MEDS ORDERED: LACTATED RINGER'S 1,000 ML IV SCH (23:52)
[2017-06-18] MEDS ORDERED: OXYTOCIN 30 UNITS/LR 500 ML IV SCH
[2017-06-18] MEDS ORDERED: CEFAZOLIN 2 GM/50 ML (PMX) 50 ML IV SCH
--- NOTE | 2017-06-18 00:10 | TRIAGE ---
OB Triage Datetime Report Generated by CPN: 06/18/2017 00:09 Datetime: 06/17/2017 23:59 Time of Arrival: 06/17/2017 23:15 EGA: 39.0 Arrived By: Ambulatory Arrived From: Home Chief Complaint: SROM @ 2115 Movement: Present Time Contractions Began: 06/17/2017 21:30 Rupture of Membranes: Ruptured Vaginal Bleeding: None Vaginal Discharge: Denies Recent Sexual Intercouse: Denies Abdominal Trauma: Not Applicable Patient Complaints: Contractions Time Provider Notified: 06/17/2017 23:45 Provider Notified: Initial Plan: ADMIT TO L_D Maternal Assessment Level of Consciousness: Fully Conscious DTR's/Clonus: DTRs 2+; No Clonus Headache: Denies Blurred Vision: No Respiratory Effort: Unlabored; Regular Rhythm; Equal Expansion Breath Sounds, Left: Clear and Equal Breath Sounds, Right: Clear and Equal Nausea/Vomiting: Denies RUQ Epigastric Pain: Denies Facial Edema: None Fall Risk Assessment History of Falling: (0) No Secondary Diagnosis: (0) No Ambulatory Aid: (0) Bedrest/Nurse Assist Gait: (0) Normal/Bedrest/Immobile Mental Status: (0) Oriented to Own Ability Comment: PT PREPPED FOR PRIMARY C_S COMPLETE, SROM, LEGS IN VAGINA Datetime: 06/17/2017 23:46 Vaginal Exam Dilatation (cms): 10.0 Effacement (%): 100 Exam By: VERA Vaginal Bleeding: None Presentation 'A': Breech Datetime: 06/17/2017 23:35 Time of Arrival: 06/17/2017 23:35 EGA: 39.0 Arrived By: Ambulatory Arrived From: Home Datetime: 06/17/2017 23:26 Labor Evaluation Frequency: IRREGULAR Monitor Mode: External Quality: Moderate Pattern: Normal: <= 5 Contractions in 10 Minutes Resting Tone [place]: Relaxed Heart Rate FHR Baseline Rate: 145 Monitor Mode: External US FHR Baseline Changes: No Baseline Change Variability: Moderate 6-25 bpm Accelerations: 15X15 Decelerations: None Category: Category I Datetime: 06/17/2017 23:21 Time of Arrival: 06/17/2017 23:15 EGA: 39.0 Arrived By: Ambulatory Arrived From: Home Chief Complaint: c/o srom at 2130. States was breech presentation 1 wk ago Movement: Present Contractions: Regular Time Contractions Began: 06/17/2017 21:40 Contractions: q5 Rupture of Membranes: Unsure Vaginal Bleeding: None Vaginal Discharge: Present Recent Sexual Intercouse: Denies Abdominal Trauma: Not Applicable Patient Complaints: Contractions Initial Plan: EFM,SVE Datetime: 06/15/2017 22:59 Maternal Assessment Level of Consciousness: Fully Conscious DTR's/Clonus: No Clonus Headache: Denies Blurred Vision: No Nausea/Vomiting: Denies RUQ Epigastric Pain: Denies Facial Edema: None Labor Evaluation Frequency: 0 Monitor Mode: External Contraction Comments: pt denies feeling pain at this time Heart Rate FHR Baseline Rate: 145 Monitor Mode: External US Variability: Moderate 6-25 bpm Accelerations: 15X15 Decelerations: None Category: Category I Pain Assessment Pain Scale: 0 Pain Presence: None/Denies Pain Type: N/A Pain Assessment Comments: pt denies feeling uterine contraction pain Membrane Status: Intact Datetime: 06/15/2017 22:43 Labor Evaluation Frequency: 0 Monitor Mode: External Resting Tone [place]: Relaxed Heart Rate FHR Baseline Rate: 145 Monitor Mode: External US Variability: Moderate 6-25 bpm Accelerations: 15X15 Decelerations: Variable Category: Category II Comments: X 1 Pain Assessment Pain Scale: 0 Pain Presence: None/Denies Pain Type: N/A Membrane Status: Intact Datetime: 06/15/2017 22:28 Vaginal Exam Dilatation (cms): 0.5 Effacement (%): 20 Station: -3 Exam By: r goldman Datetime: 06/15/2017 22:19 Time of Arrival: 06/15/2017 22:19 EGA: 38.5 Arrived By: Ambulatory Arrived From: Home Chief Complaint: uterine contractions since 2029 Movement: Present Contractions: Denies/Absent Time Contractions Began: 06/15/2017 20:30 Contractions: 5 Rupture of Membranes: Denies Vaginal Discharge: Denies Recent Sexual Intercouse: Denies Abdominal Trauma: Not Applicable Patient Complaints: Contractions; Cramping Initial Plan: monitors applied, call md Datetime: 06/15/2017 22:18 Stage of : OB Triage Assessment Type: Triage Maternal Assessment Level of Consciousness: Fully Conscious DTR's/Clonus: DTRs 2+; No Clonus Headache: Denies Blurred Vision: No Respiratory Effort: Unlabored; Regular Rhythm; Equal Expansion Breath Sounds, Left: Clear and Equal Breath Sounds, Right: Clear and Equal Nausea/Vomiting: Denies RUQ Epigastric Pain: Denies Lower Extremities Edema: None Degree: None Upper Extremities Edema: None Degree: None Facial Edema: None Temperature Route: Axillary Fall Risk Assessment History of Falling: (0) No Secondary Diagnosis: (0) No Ambulatory Aid: (0) Bedrest/Nurse Assist IV Therapy: (0) No Gait: (0) Normal/Bedrest/Immobile Mental Status: (0) Oriented to Own Ability Fall Score: 0 Fall Risk Score Definition: No Risk: No action required Monitor Mode: External (Annotations: applied ) Monitor Mode: External US (Annotations: applied ) Datetime: 05/30/2017 22:54 Stage of : OB Triage Datetime: 05/30/2017 22:50 Labor Evaluation Frequency: NONE Monitor Mode: External Duration (sec)2399: NONE Pattern: Normal: <= 5 Contractions in 10 Minutes Heart Rate FHR Baseline Rate: 145 Monitor Mode: External US FHR Baseline Changes: No Baseline Change Variability: Moderate 6-25 bpm Accelerations: 15X15 Decelerations: None Datetime: 05/30/2017 21:47 EGA: 36.3 Fall Score: 0 Fall Risk Score Definition: No Risk: No action required Datetime: 05/27/2017 22:45 EGA: 36.0 Datetime: 05/27/2017 20:30 Fall Score: 0 Fall Risk Score Definition: No Risk: No action required Datetime: 05/25/2017 12:47 EGA: 36.0 Datetime: 05/25/2017 08:00 Fall Score: 0 Fall Risk Score Definition: No Risk: No action required Datetime: 05/24/2017 19:40 Fall Score: 0 Fall Risk Score Definition: No Risk: No action required Datetime: 05/24/2017 07:24 Fall Score: 0 Fall Risk Score Definition: No Risk: No action required Datetime: 05/23/2017 19:24 Fall Score: 0 Fall Risk Score Definition: No Risk: No action required Datetime: 05/23/2017 13:00 Fall Score: 0 Fall Risk Score Definition: No Risk: No action required Datetime: 05/23/2017 12:56 EGA: 35.3 Datetime: 05/09/2017 20:22 Fall Score: 0 Fall Risk Score Definition: No Risk: No action required Datetime: 05/09/2017 20:05 EGA: 33.3 Datetime: 04/21/2017 23:26 EGA: 30.6 Fall Score: 0 Fall Risk Score Definition: No Risk: No action required
[2017-06-18 00:11] LABS: BASOPHILS % 0.2 % (0.0-2.0); EOSINOPHILS # 0.2 10^3/ul (0.0-0.5); EOSINOPHILS % 1.5 % (0.0-7.0); HEMATOCRIT 31.2 % (37.0-47.0); LYMPHOCYTES # 2.6 10^3/ul (0.8-2.9); LYMPHOCYTES % 26.6 % (18.0-55.0); MEAN CORPUSCULAR HEMOGLOBIN 26.2 pg (29.0-33.0); MEAN CORPUSCULAR HGB CONC 32.1 g/dl (32.0-37.0); MEAN CORPUSCULAR VOLUME 81.9 fl (72.0-104.0); MEAN PLATELET VOLUME 8.9 fl (7.4-10.4); MONOCYTE # 0.8 10^3/ul (0.3-0.9); MONOCYTES % 8.4 % (0.0-13.0); NEUTROPHIL # 6.2 10^3/ul (1.6-7.5); NEUTROPHILS % 62.9 % (30.0-74.0); PLATELET COUNT 280 10^3/UL (140-415); RED BLOOD COUNT 3.81 10^6/ul (4.20-5.40); RED CELL DISTRIBUTION WIDTH 14.5 % (11.5-14.5); WHITE BLOOD COUNT 9.9 10^3/ul (4.8-10.8)
[2017-06-18] MEDS ORDERED: LACTATED RINGER'S 1,000 ML IV ONE (00:13)
[2017-06-18] MEDS ORDERED: CITRIC ACID/NA CITRATE 30 ML CUP ONE (00:15)
[2017-06-18] MEDS ORDERED: FENTAnyl 50 MCG/ML VIAL ONE (00:15)
[2017-06-18] MEDS ORDERED: morphine SULFATE/PF (10 MG/10 ML) INJ ONE (00:15)
[2017-06-18] MEDS ORDERED: ONDANSETRON 4 MG INJ ONE (00:15)
[2017-06-18 00:26] LABS: INR 0.91; PROTIME 12.3 Sec (12.2-14.2)
[2017-06-18 00:27] LABS: PARTIAL THROMBOPLASTIN TIME 28.7 Sec (25.0-35.0)
[2017-06-18] MEDS ORDERED: CITRIC ACID/NA CITRATE 30 ML CUP PO ONE (00:30)
[2017-06-18] MEDS ORDERED: ONDANSETRON 4 MG INJ IV ONE (00:30)
[2017-06-18] MEDS ORDERED: PHENYLephrine (100 MCG/ML) 5ML SYG ONE ×2 (00:49→01:24)
[2017-06-18] MEDS ORDERED: METOCLOPRAMIDE 10 MG INJ ONE (00:52)
[2017-06-18] MEDS ORDERED: MIDAZOLAM 1 MG/ML 2 ML INJ ONE (01:03)
[2017-06-18] MEDS ORDERED: EPHEDrine SULFATE 50 MG/5 ML SYG ONE (01:11)
[2017-06-18] MEDS ORDERED: DIPHENHYDRAMINE 50 MG INJ ONE (01:13)
--- NOTE | 2017-06-18 02:14 | HP ---
Date/Time of Note Date/Time of Note DATE: 06/18/17 TIME: 02:04 OB - History Hx of Present Free Text/Dictation 21y.o at 39w1d who was scheduled for primary section for breech presentation presented at triage in active labor after SROM at 2100 06/17/17 VE found to be footling beech prepared primary c/s after proper info given and consent was obtained. GBS neg Chief Complaint: in labor , with water bag broken Estimated Due Date: Jun 22, 2017 : 3 Para: 2 Spontaneous : 0 Therapeutic : 0 Care: Limited Care Ultrasounds: No ultrasounds Obstetrical Complications: None Medical Complications: None Past Family/Social History * Past Medical, Surgical, Family and Obstetric Histories reviewed from chart. Blood Type: Unknown Rubella: unknown RPR/VDRL: Unknown GBS Status: Negative HBsAG: Unknown OB Admission Exam Vital Signs Vital Signs Vital Signs Date Time Temp Pulse Resp B/P Pulse Ox O2 Delivery O2 Flow Rate FiO2 06/17/17 23:38 98.5 95 18 136/78 Room Air Physical Exam HEENT: WNL Heart: Rhythm Normal Lungs: Clear, Equal Abdomen: WNL Extremities: Normal Reflexes: Normal Membranes: Ruptured Amniotic Fluid: Clear Heart Rate: 140's Accelerations: Accelerations Present Decelerations: No Decelerations Varibility: Moderate Contractions on Admission: < 5 Minutes Apart Intensity: Firm Last 72 hours Lab Results CBC & BMP 06/17/17 23:50 OB Assessment/Plan Reason for admission: active labor, rupture of membranes Other Assessment: IUP 39w1d footling breech in active labor with rom Plan: Section LUBA HYMAN MD Jun 18, 2017 02:14
[2017-06-18] MEDS ORDERED: DIPHENHYDRAMINE 50 MG INJ IV PRN ×2 (02:30→05:00)
[2017-06-18] MEDS ORDERED: TRIMETHOBENZAMIDE 100 MG/ML VIAL IM PRN (02:30)
[2017-06-18] MEDS ORDERED: NALOXONE (0.4 MG/ML) INJ IV PRN (02:30)
[2017-06-18] MEDS ORDERED: ONDANSETRON 4 MG INJ IV PRN ×2 (02:30→05:00)
[2017-06-18] MEDS ORDERED: HYDROmorphONE 0.5 MG/0.5 ML SYG IV PRN (02:30)
[2017-06-18] MEDS ORDERED: NALBUPHINE HCL (10 MG/1 ML) INJ IV PRN (02:30)
--- NOTE | 2017-06-18 02:43 | OPR ---
Operative Report Planned Procedure Procedure date Jun 18, 2017 Procedure(s) primary low transverse section Performed by see signature line Assisting provider: ROSETTE JACKMAN Anesthesiologist: DAVIDA SHELTON PA-C Pre-procedure diagnosis IUP 39w1d footling breech in active labor srom Anesthesia Type: spinal Procedure Description Under satisfactory [] anesthesia, the patient was prepped and draped and placed in a supine position, tilted to the left. Pfannenstiel incision was made, carried through the subcutaneous tissue. Bleeders brought under control with electrocautery. Fascia incised to the length of the incision. Rectus muscles from the fascia, divided midline. Peritoneum exposed, entered through a transverse incision. Exploration of abdomen revealed gravid uterus. Bladder flap was developed. Transverse incision was made above theh uterovesical reflection , Amniotic sac ruptured. []clear amniotic fluid noted. [normal female infant was born from LSA in assisted breech extraction in usual fashion. ] Nasal oropharyngeal suction was performed. The baby was handed to the team for immediate attention. The placenta was delivered manually intact.then uterus was exteriolized Uterine cavity was cleaned with wet sponge and drainage established. Uterus closed in 2 layers using [#1 ch and 0 ch] in continuously, bladder peritoneum was approximated with 00ch, Peritoneal cavity irrigated with warm saline vigorously. Sponge, needle and instrument count reported to be correct. Abdominal peritoneum closed with 00 ch] continuously. Rectus muscle approximated with [00ch ]. Fascia closed with # 1vicryl[], and subcutaneous tissue was approximated with 00 plain gut , skin closed with insorb.. Estimated blood loss [600]mL. Urine bag contained 300[]mL of urine Patient was sent PAR in stable condition. Post-Procedure Post-procedure diagnosis delivered normal female Findings: Live Baby [female], Apgars [9] and 9[], weight 7lb 4oz [], position [LSA], [] presentation []double footlingcord.none Estimated blood loss: other (600) Specimen(s): no Grafts/Implants: no Complication(s): no Pt Condition post procedure: stable Disposition: PACU Physician Certification I, the undersigned physician, hereby certify that I have discussed the procedure described in this consent form with this patient (or the patient's legal contact center representative), including: * The risk and benefits of the procedure; * Any adverse reactions that may reasonably be expected to occur; * Any alternative efficacious methods of treatment which may be medically viable ; * The potential problems that may occur during recuperation; * Potential for blood transfusion and associated risks/benefits; and * Any research or economic interest I may have regarding this treatment. I further certify that the patient/legally responsible person was encouraged to ask question and that all questions were answered. LUBA HYMAN MD Jun 18, 2017 02:31
--- NOTE | 2017-06-18 02:46 | SIPON ---
Date/Time of Note Date/Time of Note DATE: 06/18/17 TIME: 02:44 Operative Report Preoperative Diagnosis IUP 39w1d footling beech in active labor SROM Postoperative Diagnosis same delivered normal female infant Operation/Procedure Performed primary low transverse c/s Surgeon see signature line resident assistant cna reiche Anesthesia: spinal Estimated blood loss: other (600) Transfusion Required none Specimen none Grafts/Implants none Complications none LUBA HYMAN MD Jun 18, 2017 02:46
[2017-06-18 03:36] LABS: BENZODIAZEPINES Negative (NEGATIVE)
[2017-06-18 03:44] LABS: BARBITURATES Negative (NEGATIVE); CANNABINOIDS Negative (NEGATIVE); COCAINE Negative (NEGATIVE); OPIATES Negative (NEGATIVE)
[2017-06-18] MEDS: KETOROLAC 30 MG INJ IV PRN ×3 (04:06→20:09)
[2017-06-18 05:00] VITALS: BP 121/60; PULSE 88; RESP 18
[2017-06-18] MEDS ORDERED: ZOLPIDEM 5 MG TAB PO PRN (05:00)
[2017-06-18] MEDS ORDERED: LANOLIN 7 GM TUBE TOP PRN (05:00)
[2017-06-18] MEDS ORDERED: OXYTOCIN 30 UNITS/LR 500 ML IV PRN ×2 (05:00)
[2017-06-18] MEDS ORDERED: METHYLERGONOVINE 0.2 MG INJ IM PRN ×2 (05:00)
[2017-06-18] MEDS ORDERED: CARBOPROST 250 MCG INJ IM PRN ×2 (05:00)
[2017-06-18] MEDS ORDERED: MISOPROSTOL 200 MCG TAB PR PRN ×2 (05:00)
[2017-06-18 08:00] VITALS: BP 104/55; PULSE 98; RESP 20
[2017-06-18] MEDS: CEFAZOLIN 2 GM/50 ML (PMX) 50 ML IVPB SCH ×2 (08:18→13:53)
[2017-06-18] MEDS: SENNA/DOCUSATE NA (8.6MG/50MG) TAB PO SCH ×2 (08:19→21:00)
[2017-06-18] MEDS: HYDROmorphONE 0.5 MG/0.5 ML SYG IV PRN ×2 (09:12→15:33)
[2017-06-18 11:45] VITALS: BP 107/69; PULSE 102; RESP 18
[2017-06-18 15:55] VITALS: BP 108/64; PULSE 101; RESP 18
[2017-06-18] MEDS: LACTATED RINGER'S 1,000 ML IV SCH (17:29)
[2017-06-18 20:00] VITALS: BP 117/56; PULSE 112; RESP 18
[2017-06-18] MEDS ORDERED: CEFAZOLIN 2 GM/50 ML (PMX) 50 ML IVPB SCH (22:00)
[2017-06-19] MEDS: LACTATED RINGER'S 1,000 ML IV SCH (00:30)
[2017-06-19] MEDS ORDERED: OXYCODONE/ACETAMINOPHEN (5/325) TAB PO PRN (00:40)
[2017-06-19] MEDS: OXYCODONE/ACETAMINOPHEN (5/325) TAB PO PRN ×5 (01:19→22:35)
[2017-06-19 04:00] VITALS: BP 112/53; PULSE 101; RESP 18
[2017-06-19] MEDS: IBUPROFEN 600 MG TAB PO SCH ×3 (05:55→18:24)
--- NOTE | 2017-06-19 07:30 | PN ---
Date/Time of Note Date/Time of Note DATE: 06/19/17 TIME: 07:27 OB Subjective Subjective Subjective passing gas no complaint OB Objective Objective Objective vss afebrile abdomen soft wound dry calf neg for tenderness lochia min OB Assessment/Plan Other Assessment: stable post c/s #1 Other plan: as ordered LUBA HYMAN MD Jun 19, 2017 07:29
[2017-06-19 07:50] VITALS: BP 113/70; PULSE 93; RESP 20
[2017-06-19 09:18] LABS: BASOPHILS % 0.3 % (0.0-2.0); EOSINOPHILS # 0.1 10^3/ul (0.0-0.5); EOSINOPHILS % 0.9 % (0.0-7.0); HEMATOCRIT 24.6 % (37.0-47.0); HEMOGLOBIN 7.6 g/dl (12.0-16.0); LYMPHOCYTES # 1.9 10^3/ul (0.8-2.9); LYMPHOCYTES % 16.5 % (18.0-55.0); MEAN CORPUSCULAR HEMOGLOBIN 25.2 pg (29.0-33.0); MEAN CORPUSCULAR HGB CONC 30.9 g/dl (32.0-37.0); MEAN CORPUSCULAR VOLUME 81.7 fl (72.0-104.0); MEAN PLATELET VOLUME 8.8 fl (7.4-10.4); MONOCYTE # 0.9 10^3/ul (0.3-0.9); MONOCYTES % 7.7 % (0.0-13.0); NEUTROPHIL # 8.6 10^3/ul (1.6-7.5); NEUTROPHILS % 74.2 % (30.0-74.0); PLATELET COUNT 165 10^3/UL (140-415); RED BLOOD COUNT 3.01 10^6/ul (4.20-5.40); RED CELL DISTRIBUTION WIDTH 14.7 % (11.5-14.5); WHITE BLOOD COUNT 11.6 10^3/ul (4.8-10.8)
[2017-06-19] MEDS: SENNA/DOCUSATE NA (8.6MG/50MG) TAB PO SCH ×2 (09:36→21:18)
[2017-06-19 11:50] VITALS: BP 105/59; PULSE 95; RESP 20
[2017-06-19 13:57] LABS: RUBELLA ANTIBODY - IGG <0.90 index
[2017-06-19 16:00] VITALS: BP 109/53; PULSE 65; RESP 20
[2017-06-19] MEDS: FERROUS GLUCONATE (EC) 325 MG TAB PO SCH ×2 (16:41→21:18)
[2017-06-19 19:35] VITALS: BP 113/82; PULSE 98; RESP 20
[2017-06-20] MEDS: IBUPROFEN 600 MG TAB PO SCH ×4 (00:18→18:17)
[2017-06-20] MEDS: OXYCODONE/ACETAMINOPHEN (5/325) TAB PO PRN ×4 (03:33→21:21)
[2017-06-20 04:00] VITALS: BP 112/63; PULSE 100; RESP 17
[2017-06-20 07:30] VITALS: BP 100/53; PULSE 98; RESP 20
[2017-06-20 07:46] LABS: BASOPHILS % 0.2 % (0.0-2.0); EOSINOPHILS # 0.2 10^3/ul (0.0-0.5); EOSINOPHILS % 2.4 % (0.0-7.0); HEMATOCRIT 23.1 % (37.0-47.0); HEMOGLOBIN 7.1 g/dl (12.0-16.0); LYMPHOCYTES # 2.6 10^3/ul (0.8-2.9); LYMPHOCYTES % 25.4 % (18.0-55.0); MEAN CORPUSCULAR HEMOGLOBIN 25.2 pg (29.0-33.0); MEAN CORPUSCULAR HGB CONC 30.7 g/dl (32.0-37.0); MEAN CORPUSCULAR VOLUME 81.9 fl (72.0-104.0); MEAN PLATELET VOLUME 8.5 fl (7.4-10.4); MONOCYTE # 0.9 10^3/ul (0.3-0.9); MONOCYTES % 8.6 % (0.0-13.0); NEUTROPHIL # 6.3 10^3/ul (1.6-7.5); NEUTROPHILS % 62.9 % (30.0-74.0); PLATELET COUNT 180 10^3/UL (140-415); RED BLOOD COUNT 2.82 10^6/ul (4.20-5.40); WHITE BLOOD COUNT 10.1 10^3/ul (4.8-10.8)
[2017-06-20] MEDS: SENNA/DOCUSATE NA (8.6MG/50MG) TAB PO SCH ×2 (09:11→21:21)
[2017-06-20] MEDS: FERROUS GLUCONATE (EC) 325 MG TAB PO SCH ×2 (09:11→21:21)
--- NOTE | 2017-06-20 10:16 | PN ---
Date/Time of Note Date/Time of Note DATE: 06/20/17 TIME: 10:13 OB Subjective Subjective Subjective no c/o OB Objective Objective Objective VSS afebrile abdomen soft wound dry calf neg for tenderness lochia min OB Assessment/Plan Other Assessment: s/p primary c/s #2 anemia Other plan: as ordered LUBA HYMAN MD Jun 20, 2017 10:16
[2017-06-20 16:00] VITALS: BP 106/58; PULSE 86; RESP 18
[2017-06-20 19:40] VITALS: BP 113/65; PULSE 84; RESP 18
[2017-06-21] MEDS: IBUPROFEN 600 MG TAB PO SCH ×3 (00:18→11:45)
[2017-06-21] MEDS: OXYCODONE/ACETAMINOPHEN (5/325) TAB PO PRN ×3 (03:43→13:58)
[2017-06-21 04:10] VITALS: BP 118/61; PULSE 91; RESP 17
[2017-06-21 08:00] VITALS: BP 104/53; PULSE 82; RESP 17
[2017-06-21] MEDS: SENNA/DOCUSATE NA (8.6MG/50MG) TAB PO SCH (08:37)
[2017-06-21] MEDS: FERROUS GLUCONATE (EC) 325 MG TAB PO SCH (08:37)
[2017-06-21] MEDS ORDERED: DIPHTH/TET/ACEL PERTUSS (ADULT) 0.5 ML VIAL IM* ONE (09:00)
--- NOTE | 2017-06-21 09:20 | PD.PPDC ---
[facility] Discharge Instruction Diagnosis Final Diagnosis: Term .Breech presentation Condition Patient Condition: Good Diet Diet: Resume Regular Diet Activity/Restrictions Activity: Normal Activity May Shower Restrictions: No Exercising No Lifting No Sexual Activity Nothing in the Vagina No Bowler Wound/Drain Care Instructions Wound/Drain Care Instructions: Remove Steri Strips in 1 week Keep clean and dry Follow-up Follow-up with Physician: 1, Week/Weeks Return to clinic for INSTRUCTIONAL SPECIALIST Instructions: Fever greater than 101 Worsening abdominal pain Excessive Vaginal Bleeding Surgical Instructions: Incisional Drainage Incisional Redness (Shower and wash hair as usual.) KACEY GONZALES MD Jun 21, 2017 09:20
--- NOTE | 2017-06-21 11:26 | DS ---
DATE OF ADMISSION: 06/18/2017 DATE OF DISCHARGE: 06/21/2017 FINAL DIAGNOSES 1. Term intrauterine in active labor. 2. Breech presentation. SUMMARY: This is a 21-year-old female, 3, para 2, who presented in active labor at term to the labor and delivery suite. At presentation, double footling breech was in the vagina. She was a ttended by Dr. Charlotte Hyman who delivered by section under spinal anesthesia with the help o lucio Perry. She had a baby girl, had scores of 8 and 9. Postoperatively, the patient and b adri both have done well. Today, she is in her third day postop. She is afebrile, tolerating p.o. fluids food well. She is passing gas with no problems. The incisi on is healing fine. She is discharged with written instructions with a prescription for Percocet to use 1 tablet or 2 ev sidney 6 hours p.r.n. pain, and iron p.o. to continue to take twice a day. She is to make an appointme nt for followup visit in the office in 1 week. She is discharged in good condition. Dictated By: KACEY CONRAD/NTS Conf#: [id number] DID#: [id number] CC: CHARLOTTE HYMAN MD;*End*
== END 2017-06-21 15:35 | disposition home or self-care (01) | DRG 766 ==
LOC: L-D 23:20 → OBT 23:20 → L-D 06-18 → PP1 06-18 04:51
PROVIDERS: ADMIT Specialist; ATTEND Specialist
PROC: 10D00Z1 Extraction of Products of Conception, Low, Open Approach (ICD-10-PCS; principal; 2017-06-18 00:15)
DX: O32.8XX0 Maternal care for other malpresentation of fetus, not applicable or unspecified (principal); O99.214 Obesity complicating childbirth; O90.81 Anemia of the puerperium; Z37.0 Single live birth; Z3A.39 39 weeks gestation of pregnancy
CPT/HCPCS: 80307; 85025; 85610; 85730; 86592; 86762; 86850; 86900; 86901; 87340; 90715; 94760; 99464; G0463; J0690; J1200; J1885; J2250; J2274; J2370; J2405; J2590; J2765; J3010; J7120